=== PATIENT | male | born 1985 | race Caucasian/White ===

== ENCOUNTER 2016-10-18 14:21 | Emergency (ER) | payer MEDICAID, OTHER ==
[~2016-10-18] VITALS: Ht 182.9 cm; Wt 75.0 kg
[2016-10-18] MEDS ORDERED: methylPREDNISolone INJ 125 MG/2 ML VIAL (J2930) IV ONE (16:00)
[2016-10-18] MEDS ORDERED: FAMOTIDINE IV BAG 20 MG in APPROPRIATE DILUENT 1 EA IV ONE (16:00)
[2016-10-18 16:41] VITALS: BP 124/77
[2016-10-18] MEDS ORDERED: PRED20TA PO (16:41)
[2016-10-18] MEDS ORDERED: PEPC1TAB4 PO (16:41)
== END 2016-10-18 16:57 | disposition home or self-care (01) ==
LOC: M ED 14:21
DX: L29.9 Pruritus, unspecified (principal); T78.40XA Allergy, unspecified, initial encounter; X58.XXXA Exposure to other specified factors, initial encounter; Y92.89 Other specified places as the place of occurrence of the external cause; Y93.89 Activity, other specified; Y99.8 Other external cause status; F17.200 Nicotine dependence, unspecified, uncomplicated
CPT/HCPCS: 96374; 96375; 99283; J2930

== ENCOUNTER → 2016-12-23 | Outpatient (CLI) | payer MEDICAID, SELFPAY ==
[~2016-12-23] MED LIST: PEPC1TAB4 PO; PRED20TA PO
== END ==
LOC: M OUTALCOH 08:59
PROVIDERS: ATTEND Psychiatry & Neurology Psychiatry
DX: Z13.9 Encounter for screening, unspecified (principal); F10.10 Alcohol abuse, uncomplicated

== ENCOUNTER 2017-01-08 13:00 | Outpatient (RCR) | payer MEDICAID, SELFPAY | END 2017-01-21 | LOC: M OUTALCOH 13:00 | PROVIDERS: ATTEND Psychiatry & Neurology Psychiatry | DX: F10.20 Alcohol dependence, uncomplicated (principal); F17.200 Nicotine dependence, unspecified, uncomplicated ==

== ENCOUNTER → 2017-05-28 | Outpatient (CLI) | payer OTHER ==
[2017-05-28 18:07] LABS: INR 0.94; PROTHROMBIN TIME 12.6 SECONDS (12.4-14.5)
[2017-05-28 18:12] LABS: BASO # 0.1 10^3/uL (0.0-0.2); BASO % 0.7 % (0.0-1.0); EOS # 0.3 10^3/uL (0.0-0.50); EOS % 3.3 % (0.0-3.0); HEMATOCRIT 45.7 % (42.0-52.0); HEMOGLOBIN 15.8 g/dl (14.0-18.0); IMMATURE GRANULOCYTE % 0.3 % (0-3.0); LYMPH # 2.5 10^3/uL (1.5-4.5); LYMPH % 25.5 % (24.0-44.0); MEAN CORPUSCULAR HEMOGLOBIN 31.3 pg (27.0-33.0); MEAN CORPUSCULAR HGB CONC 34.6 g/dl (32.0-36.5); MEAN CORPUSCULAR VOLUME 90.5 fl (80.0-96.0); MONO # 0.7 10^3/uL (0.0-0.8); MONO % 7.5 % (0.0-5.0); NEUTROPHILS # 6.2 10^3/uL (1.8-7.7); NEUTROPHILS % 62.7 % (36.0-66.0); PLATELET COUNT, AUTOMATED 268 10^3/uL (150-450); RED BLOOD COUNT 5.05 10^6/uL (4.30-6.10); RED CELL DISTRIBUTION WIDTH 12.9 % (11.5-14.5); WHITE BLOOD COUNT 9.8 10^3/uL (4.0-10.0)
[2017-05-28 19:00] LABS: ERYTHROCYTE SEDIMENTATION RATE 5 mm/hr (0-15)
[2017-05-28 19:24] LABS: ALBUMIN 4.1 GM/DL (3.2-5.2); ALBUMIN/GLOBULIN RATIO 1.37 (1.00-1.93); ALKALINE PHOSPHATASE 48 U/L (45-117); ALT/SGPT 32 U/L (12-78); ANION GAP 7 MEQ/L (8-16); AST/SGOT 20 U/L (7-37); BILIRUBIN,TOTAL 0.3 MG/DL (0.2-1.0); BLOOD UREA NITROGEN 20 MG/DL (7-18); CALCIUM LEVEL 9.2 MG/DL (8.5-10.1); CARBON DIOXIDE LEVEL 27 MEQ/L (21-32); CHLORIDE LEVEL 106 MEQ/L (98-107); CREATININE FOR GFR 1.05 MG/DL (0.70-1.30); FERRITIN 115 NG/ML (26-388); GLOMERULAR FILTRATION RATE > 60.0 (>60); GLUCOSE, FASTING 96 MG/DL (70-100); IRON (FE) 103 UG/DL (65-175); POTASSIUM SERUM 4.4 MEQ/L (3.5-5.1); SODIUM LEVEL 140 MEQ/L (136-145); TOTAL PROTEIN 7.1 GM/DL (6.4-8.2)
== END ==
LOC: M LAB 17:04
DX: K92.1 Melena (principal)
CPT/HCPCS: 83540

== ENCOUNTER → 2017-06-05 | Outpatient (CLI) | payer MEDICAID | LOC: M OUTALCOH 08:44 | DX: F10.20 Alcohol dependence, uncomplicated (principal); F12.20 Cannabis dependence, uncomplicated ==

== ENCOUNTER 2017-06-20 15:11 | Outpatient (RCR) | payer MEDICAID | END 2017-06-21 | LOC: M OUTALCOH 15:11 | DX: F10.20 Alcohol dependence, uncomplicated (principal); F12.20 Cannabis dependence, uncomplicated; F17.200 Nicotine dependence, unspecified, uncomplicated ==

== ENCOUNTER 2017-07-03 15:16 | Outpatient (RCR) | payer MEDICAID | END 2017-07-21 | LOC: M OUTALCOH 07-08 16:00 | DX: F10.20 Alcohol dependence, uncomplicated (principal); F17.200 Nicotine dependence, unspecified, uncomplicated; F12.20 Cannabis dependence, uncomplicated ==

== ENCOUNTER 2017-07-22 16:13 | Outpatient (RCR) | payer MEDICAID | END 2017-08-21 | LOC: M OUTALCOH 16:13 | DX: F10.20 Alcohol dependence, uncomplicated (principal); F17.200 Nicotine dependence, unspecified, uncomplicated; F12.20 Cannabis dependence, uncomplicated ==

== ENCOUNTER 2017-09-02 16:00 | Outpatient (RCR) | payer MEDICAID | END 2017-09-20 | LOC: M OUTALCOH 09-05 16:00 | DX: F10.20 Alcohol dependence, uncomplicated (principal); F17.200 Nicotine dependence, unspecified, uncomplicated; F12.20 Cannabis dependence, uncomplicated ==

== ENCOUNTER 2017-11-26 10:17 | Outpatient (RCR) | payer MEDICAID | END 2017-12-21 | LOC: M OUTALCOH 12-04 14:00 | DX: F10.20 Alcohol dependence, uncomplicated (principal); F17.200 Nicotine dependence, unspecified, uncomplicated; F12.20 Cannabis dependence, uncomplicated ==

== ENCOUNTER 2017-12-22 14:17 | Outpatient (RCR) | payer MEDICAID | END 2018-01-21 | LOC: M OUTALCOH 12-24 08:45 | DX: F10.20 Alcohol dependence, uncomplicated (principal); F17.200 Nicotine dependence, unspecified, uncomplicated; F12.20 Cannabis dependence, uncomplicated ==

== ENCOUNTER 2018-01-23 11:07 | Outpatient (RCR) | payer MEDICAID | END 2018-02-20 | LOC: M OUTALCOH 11:07 | DX: F10.20 Alcohol dependence, uncomplicated (principal); F17.200 Nicotine dependence, unspecified, uncomplicated; F12.20 Cannabis dependence, uncomplicated ==

== ENCOUNTER 2018-02-23 08:16 | Outpatient (RCR) | payer MEDICAID ==
[~2018-02-23 08:16] MED LIST changes: -PEPC1TAB4 PO; +PEPC1TAB5 PO
== END 2018-03-23 ==
LOC: M OUTALCOH 08:16
PROVIDERS: ATTEND Psychiatry & Neurology Psychiatry
DX: F10.20 Alcohol dependence, uncomplicated (principal); F12.20 Cannabis dependence, uncomplicated; F17.200 Nicotine dependence, unspecified, uncomplicated

== ENCOUNTER 2018-04-22 15:00 | Outpatient (RCR) | payer MEDICAID | END 2018-04-23 | LOC: M OUTALCOH 15:00 | PROVIDERS: ATTEND Psychiatry & Neurology Psychiatry | DX: F10.20 Alcohol dependence, uncomplicated (principal); F17.200 Nicotine dependence, unspecified, uncomplicated ==

== ENCOUNTER 2018-05-14 14:49 | Outpatient (RCR) | payer MEDICAID | END 2018-05-21 | LOC: M OUTALCOH 14:49 | PROVIDERS: ATTEND Psychiatry & Neurology Psychiatry | DX: F10.20 Alcohol dependence, uncomplicated (principal); F12.20 Cannabis dependence, uncomplicated; F17.200 Nicotine dependence, unspecified, uncomplicated ==

== ENCOUNTER 2018-09-15 18:30 | Emergency (ER) | payer MEDICAID, OTHER ==
[~2018-09-15] VITALS: Ht 167.6 cm; Wt 75.0 kg
[2018-09-15 19:10] LABS: BASO # 0.1 10^3/uL (0.0-0.2); BASO % 0.6 % (0.0-1.0); EOS # 0.4 10^3/uL (0.0-0.50); EOS % 3.2 % (0.0-3.0); HEMATOCRIT 46.2 % (42.0-52.0); HEMOGLOBIN 16.9 g/dl (13.5-17.5); LYMPH # 3.4 10^3/uL (1.5-4.5); LYMPH % 29.2 % (24.0-44.0); MEAN CORPUSCULAR HEMOGLOBIN 32.1 pg (27.0-33.0); MEAN CORPUSCULAR HGB CONC 36.6 g/dl (32.0-36.5); MEAN CORPUSCULAR VOLUME 87.8 fl (80.0-96.0); MONO # 0.9 10^3/uL (0.0-0.8); MONO % 8.1 % (0.0-5.0); NEUTROPHILS # 6.7 10^3/uL (1.8-7.7); NEUTROPHILS % 58.3 % (36.0-66.0); PLATELET COUNT, AUTOMATED 293 10^3/uL (150-450); RED BLOOD COUNT 5.26 10^6/uL (4.30-6.10); WHITE BLOOD COUNT 11.5 10^3/uL (4.0-10.0)
[2018-09-15 19:12] LABS: INR 0.94; PROTHROMBIN TIME 12.3 SECONDS (11.8-14.0)
[2018-09-15 19:23] LABS: D-DIMER QUANT < 270 ng/ml (<500)
[2018-09-15] MEDS ORDERED: LORazepam 1 MG TAB PO ONE (19:30)
[2018-09-15] MEDS ORDERED: GI COCKTAIL 50ML BTL(HYOSCYAMINE/MAALOX/LIDOCAINE VISCOUS)(1:3:1) PO ONE (19:30)
--- NOTE | 2018-09-15 19:31 | REP ---
Clinical: Acute chest pain . Comparison: 08/03/2011 . Findings: The mediastinum and cardiac silhouette are stable and within normal limits for portable technique. The lung royal are clear without acute consolidation, effusion, or pneumothorax. Skeletal structures are intact. Impression: No acute cardiopulmonary process appreciated. Electronically Signed by Jose Agrawal MD 09/15/2018 07:22 P
[2018-09-15 19:34] LABS: ALT/SGPT 22 U/L (12-78); BILIRUBIN,DIRECT 0.3 MG/DL (0.0-0.2); BLOOD UREA NITROGEN 17 MG/DL (7-18); CALCIUM LEVEL 9.7 MG/DL (8.5-10.1); CARBON DIOXIDE LEVEL 25 MEQ/L (21-32); CHLORIDE LEVEL 104 MEQ/L (98-107); CK-MB VALUE MASS 2.6 NG/ML (<3.6); CPK CREATINE PHOSPHOKINASE 168 U/L (39-308); CREATININE FOR GFR 1.32 MG/DL (0.70-1.30); GLOMERULAR FILTRATION RATE > 60.0 (>60); GLUCOSE, FASTING 91 MG/DL (70-100); LIPASE 80 U/L (73-393); MB/CK RELATIVE INDEX 1.55 (< OR =4); NT-PRO BNP 16 PG/ML (<125); POTASSIUM SERUM 3.5 MEQ/L (3.5-5.1); SODIUM LEVEL 137 MEQ/L (136-145); TOTAL PROTEIN 7.2 GM/DL (6.4-8.2); TROPONIN I < 0.02 NG/ML (< 0.10)
[2018-09-15 19:38] LABS: AMPHETAMINES LEVEL URINE POSITIVE (NEGATIVE); BARBITURATES URINE NEGATIVE (NEGATIVE); BENZODIAZEPINES URINE NEGATIVE (NEGATIVE); CANNABINOIDS URINE POSITIVE (NEGATIVE); COCAINE METABOLITE URINE NEGATIVE (NEGATIVE); METHADONE URINE NEGATIVE (NEGATIVE); OPIATES URINE NEGATIVE (NEGATIVE); PHENCYCLIDINE URINE NEGATIVE (NEGATIVE)
[2018-09-15 22:11] LABS: CK-MB VALUE MASS 2.1 NG/ML (<3.6); CPK CREATINE PHOSPHOKINASE 148 U/L (39-308); MB/CK RELATIVE INDEX 1.42 (< OR =4); TROPONIN I < 0.02 NG/ML (< 0.10)
[2018-09-15] MEDS ORDERED: HYDR-3363 PO (23:06)
[2018-09-15] MEDS ORDERED: SUCR1TA PO (23:06)
[2018-09-15] MEDS ORDERED: PRIL20TA2 PO (23:06)
[2018-09-15 23:12] VITALS: BP 143/76
--- NOTE | 2018-09-16 21:28 | ECGEPIP ---
[facility] - ED Test Date: 2018-09-15 Pat Name: RAMSES MIJARES Department: Room: - Gender: Male [employer]: ct : 1985 Requested By: KATHLEEN Esqueda Order Number: [id number] Reading MD: Almaz Dumont Measurements Intervals [place] Rate: 106 P: 75 GA: 138 QRS: 68 QRSD: 89 T: 71 QT: 342 QTc: 455 Interpretive Statements SINUS TACHYCARDIA ABNORMAL RHYTHM ECG NSTTW abnormalities NO PRIOR Electronically Signed on 09-16-2018 21:28:50 EDT by Almaz Dumont
--- NOTE | 2018-09-16 21:34 | ECGEPIP ---
[facility] - ED Test Date: 2018-09-15 Pat Name: RAMSES MIJARES Department: Room: - Gender: Male [employer] Sorter: MICHAEL : 1985 Requested By: KATHLEEN Esqueda Order Number: [id number] Reading MD: Almaz Dumont Measurements Intervals [place] Rate: 54 P: 43 NM: 141 QRS: 53 QRSD: 90 T: 68 QT: 393 QTc: 376 Interpretive Statements SINUS BRADYCARDIA NSTTW abnormalities DECREASED RATE 09/15/18 Electronically Signed on 09-16-2018 21:33:51 EDT by Almaz Dumont
== END 2018-09-15 23:17 | disposition home or self-care (01) ==
LOC: M ED 18:30 → EDBD 18:30 → M ED 23:17
DX: K21.0 Gastro-esophageal reflux disease with esophagitis (principal); F41.9 Anxiety disorder, unspecified; F90.9 Attention-deficit hyperactivity disorder, unspecified type; Z79.899 Other long term (current) drug therapy; F17.210 Nicotine dependence, cigarettes, uncomplicated

== ENCOUNTER 2018-11-20 10:06 | Emergency (ER) | payer OTHER ==
[~2018-11-20] VITALS: Ht 182.9 cm; Wt 77.3 kg
[~2018-11-20 10:06] MED LIST changes: +HYDR-3363 PO; +PRIL20TA2 PO; +SUCR1TA PO
[2018-11-20] MEDS ORDERED: LORazepam 2 MG TAB PO STA (10:20)
[2018-11-20 13:00] VITALS: BP 129/73
== END 2018-11-20 13:05 | disposition home or self-care (01) ==
LOC: M ED 10:06
DX: F41.9 Anxiety disorder, unspecified (principal); F41.0 Panic disorder [episodic paroxysmal anxiety]; Z72.0 Tobacco use

== ENCOUNTER → 2018-11-25 | Outpatient (CLI) | payer MEDICAID | LOC: M OUTALCOH 07:39 | PROVIDERS: ATTEND Psychiatry & Neurology Psychiatry | DX: F10.20 Alcohol dependence, uncomplicated (principal); F12.20 Cannabis dependence, uncomplicated; F14.20 Cocaine dependence, uncomplicated ==

== ENCOUNTER → 2018-12-21 | Outpatient (RCR) | payer MEDICAID | LOC: M OUTALCOH 12-02 11:00 | PROVIDERS: ATTEND Psychiatry & Neurology Psychiatry | DX: F10.20 Alcohol dependence, uncomplicated (principal); F12.20 Cannabis dependence, uncomplicated; F14.20 Cocaine dependence, uncomplicated; F17.200 Nicotine dependence, unspecified, uncomplicated ==

== ENCOUNTER 2018-12-24 15:30 | Outpatient (RCR) | payer MEDICAID, SELFPAY | END 2019-01-21 | LOC: M OUTALCOH 15:30 | PROVIDERS: ATTEND Psychiatry & Neurology Psychiatry | DX: F10.20 Alcohol dependence, uncomplicated (principal); F17.200 Nicotine dependence, unspecified, uncomplicated; F14.20 Cocaine dependence, uncomplicated; F12.20 Cannabis dependence, uncomplicated ==

== ENCOUNTER 2019-06-04 23:56 | Emergency (ER) | payer OTHER, SELFPAY ==
[~2019-06-04] VITALS: Ht 182.9 cm; Wt 76.4 kg
[2019-06-05] MEDS ORDERED: hydrOXYzine 50 MG TAB PO STA (01:51)
[2019-06-05] MEDS ORDERED: VIST50CA PO (01:52)
[2019-06-05 02:17] VITALS: BP 159/74
== END 2019-06-05 02:19 | disposition home or self-care (01) ==
LOC: M ED 23:56
DX: F41.0 Panic disorder [episodic paroxysmal anxiety] (principal); F17.210 Nicotine dependence, cigarettes, uncomplicated; F10.10 Alcohol abuse, uncomplicated

== ENCOUNTER 2020-01-07 07:38 | Emergency (ER) | payer OTHER ==
[~2020-01-07] VITALS: Ht 180.3 cm; Wt 79.3 kg
[~2020-01-07 07:38] MED LIST changes: +VIST50CA PO
--- NOTE | 2020-01-07 09:11 | REPVR ---
PROCEDURE INFORMATION: Exam: US Duplex Right Lower Extremity Veins, Limited Exam date and time: 01/07/2020 8:42 AM Age: 34 years old Clinical indication: Pain; Leg, lower; Right; Additional info: R/O dvt, pain and redness and medial right calf TECHNIQUE: Imaging protocol: Real-time Duplex ultrasound of the Right Lower Extremity with 2-D church scale, color Doppler flow and spectral waveform analysis with image documentation. Limited exam was focused on the right lower extremity veins. COMPARISON: No relevant prior studies available. FINDINGS: Right deep veins: No deep venous thrombosis in the visualized right common femoral, profunda femoris, superficial femoral, or popliteal veins. Right superficial veins: Superficial thrombus in the region of the right calf. Soft tissues: Unremarkable. IMPRESSION: 1. No deep venous thrombosis in the visualized right lower extremity. 2. Superficial thrombus in the region of the right calf. Electronically signed by: Soto Valdez On 01/07/2020 09:11:15 AM
[2020-01-07] MEDS ORDERED: IBUP80TA PO (09:44)
[2020-01-07 09:57] VITALS: BP 160/92
== END 2020-01-07 09:59 | disposition home or self-care (01) ==
LOC: M ED 07:38
DX: I82.811 Embolism and thrombosis of superficial veins of right lower extremity (principal); F17.210 Nicotine dependence, cigarettes, uncomplicated; Z83.2 Family history of diseases of the blood and blood-forming organs and certain disorders involving the immune mechanism

== ENCOUNTER 2020-01-19 23:16 | Emergency (ER) | payer OTHER ==
[~2020-01-19] VITALS: Ht 180.3 cm; Wt 77.7 kg
[~2020-01-19 23:16] MED LIST changes: +IBUP80TA PO
[2020-01-19] MEDS ORDERED: NAPR-885 (23:22)
[2020-01-20] MEDS ORDERED: MAGIC MOUTHWASH SUSPENSION BTL SS STA (00:20)
[2020-01-20] MEDS ORDERED: HYDR-3713 PO (00:22)
[2020-01-20] MEDS ORDERED: AUGM875T28 PO (00:22)
[2020-01-20] MEDS ORDERED: IBUP80TA PO (00:22)
[2020-01-20] MEDS ORDERED: MAGICMW SSP (00:22)
[2020-01-20] MEDS ORDERED: NORCO 5/325MG TABLET (BULK FOR ED) PO ONE (00:30)
[2020-01-20] MEDS ORDERED: IBUPROFEN 600MG TAB PO ONE (00:30)
[2020-01-20] MEDS ORDERED: AUGMENTIN 875 MG TAB PO ONE (00:30)
[2020-01-20 00:33] VITALS: BP 139/97
== END 2020-01-20 00:42 | disposition home or self-care (01) ==
LOC: M ED 23:16
DX: S02.5XXA Fracture of tooth (traumatic), initial encounter for closed fracture (principal); K02.9 Dental caries, unspecified; X58.XXXA Exposure to other specified factors, initial encounter; Y92.89 Other specified places as the place of occurrence of the external cause; Y93.89 Activity, other specified; Y99.8 Other external cause status; K04.7 Periapical abscess without sinus; F17.200 Nicotine dependence, unspecified, uncomplicated

== ENCOUNTER → 2020-03-20 | Outpatient (REF) | payer OTHER ==
[~2020-03-20] MED LIST changes: +AUGM875T28 PO; +HYDR-3713 PO; +MAGICMW SSP; +NAPR-885
[2020-03-20 12:21] LABS: ALT/SGPT 54 U/L (12-78); BILIRUBIN,TOTAL 0.6 MG/DL (0.2-1.0); BLOOD UREA NITROGEN 7 MG/DL (7-18); CALCIUM LEVEL 9.1 MG/DL (8.5-10.1); CARBON DIOXIDE LEVEL 29 MEQ/L (21-32); CHLORIDE LEVEL 106 MEQ/L (98-107); CHOLESTEROL LEVEL 288 MG/DL (<200); CHOLESTEROL RISK RATIO 5.433 (<5); CREATININE FOR GFR 1.07 MG/DL (0.70-1.30); GLOMERULAR FILTRATION RATE > 60.0 (>60); GLUCOSE, FASTING 98 MG/DL (70-100); HDL CHOLESTEROL 53 MG/DL (>40); LDL CHOLESTEROL 171 MG/DL (<100); NON-HDL-C 235 MG/DL; POTASSIUM SERUM 3.8 MEQ/L (3.5-5.1); SODIUM LEVEL 139 MEQ/L (136-145); TOTAL PROTEIN 7.1 GM/DL (6.4-8.2); TRIGLYCERIDES LEVEL 321 MG/DL (<150)
== END ==
LOC: M LAB REF 11:19
PROVIDERS: ATTEND Family Medicine Addiction Medicine
DX: Z00.00 Encounter for general adult medical examination without abnormal findings (principal)

== ENCOUNTER → 2020-03-25 | Outpatient (CLI) | payer SELFPAY | LOC: M LABSMTC 10:57 | PROVIDERS: ATTEND Pediatrics | DX: Z20.828 Contact with and (suspected) exposure to other viral communicable diseases (principal) ==

== ENCOUNTER 2020-05-08 13:43 | Emergency (ER) | payer OTHER ==
[~2020-05-08] VITALS: Ht 182.9 cm; Wt 85.6 kg
[2020-05-08 13:44] VITALS: BP 160/108
--- OUTSIDE RECORDS SUMMARY | 2020-05-08 13:49 | CCD ---
Author Author [facility] Organization [facility] Address Unknown Phone Unavailable Care Team Providers Care Television Producer Name Role Phone Lily Patterson MD Unavailable Unavailable Lily Patterosn MD Unavailable Unavailable Lily Patterson MD Unavailable Unavailable Lily Patterson MD Unavailable Unavailable Lily Patterson MD Unavailable Unavailable Lily Patterson MD Unavailable Unavailable Lily Patterson MD Unavailable Unavailable Lily Patterson MD Unavailable Unavailable Lily Patterson MD Unavailable Unavailable Lily Patterson MD Unavailable Unavailable Lily Patterson MD Unavailable Unavailable Lily Patterson MD Unavailable Unavailable Lily Patterson MD Unavailable Unavailable Lily Patterson MD Unavailable Unavailable Lily Patterson MD Unavailable Unavailable Lily Patterson MD Unavailable Unavailable Lily Patterson MD Unavailable Unavailable Lily Patterson MD Unavailable Unavailable Lily Patterson MD Unavailable Unavailable Lily Patterson MD Unavailable Unavailable Lily Patterson MD Unavailable Unavailable Lily Patterson MD Unavailable Unavailable Lily Patterson MD Unavailable Unavailable Lily Patterson MD Unavailable Unavailable Lily Patterson MD Unavailable Unavailable Lily Patterson MD Unavailable Unavailable Lily Patterson MD Unavailable Unavailable Lily Patterson MD Unavailable Unavailable Lily Patterson MD Unavailable Unavailable Lily Patterson MD Unavailable Unavailable Lily Patterson MD Unavailable Unavailable Lily Patterson MD Unavailable Unavailable Lily Patterson MD Unavailable Unavailable Lily Patterson MD Unavailable Unavailable Lily Patterson MD Unavailable Unavailable Lily Patterson MD Unavailable Unavailable Lily Patterson MD Unavailable Unavailable Lily Patterson MD Unavailable Unavailable Lily Patterson MD Unavailable Unavailable Lily Patterson MD Unavailable Unavailable Lily Patterson MD Unavailable Unavailable Lily Patterson MD Unavailable Unavailable Lily Patterson MD Unavailable Unavailable Lily Patterson MD Unavailable Unavailable Lily Patterson MD Unavailable Unavailable Lily Patterson MD Unavailable Unavailable Lily Patterson MD Unavailable Unavailable Lily Patterson MD Unavailable Unavailable Lily Patterson MD Unavailable Unavailable Lily Patterson MD Unavailable Unavailable Lily Patterson MD Unavailable Unavailable Lily Patterson MD Unavailable Unavailable Lily Patterson MD Unavailable Unavailable Lily Patterson MD Unavailable Unavailable Lily Patterson MD Unavailable Unavailable Lily Patterson MD Unavailable Unavailable Lily Patterson MD Unavailable Unavailable Lily Patterson MD Unavailable Unavailable Lily Patterson MD Unavailable Unavailable Lily Patterson MD Unavailable Unavailable Lily Patterson MD Unavailable Unavailable Lily Patterson MD Unavailable Unavailable Lily Patterson MD Unavailable Unavailable Lily Patterson MD Unavailable Unavailable Lily Patterson MD Unavailable Unavailable Lily Patterson MD Unavailable Unavailable Lily Patterson MD Unavailable Unavailable Lily Patterson MD Unavailable Unavailable Lily Patterson MD Unavailable Unavailable Lily Patterson MD Unavailable Unavailable Lily Patterson MD Unavailable Unavailable Lily Patterson MD Unavailable Unavailable Lily Patterson MD Unavailable Unavailable Lily Patterson MD Unavailable Unavailable Lily Patterson MD Unavailable Unavailable Lily Patterson MD Unavailable Unavailable Lily Patterson MD Unavailable Unavailable Lily Patterson MD Unavailable Unavailable Lily Patterson MD Unavailable Unavailable Lily Patterson MD Unavailable Unavailable Lily Patterson MD Unavailable Unavailable Lily Patterson MD Unavailable Unavailable Lily Patterson MD Unavailable Unavailable Lily Patterson MD Unavailable Unavailable Lily Patterson MD Unavailable Unavailable Lily Patterson MD Unavailable Unavailable Lily Patterson MD Unavailable Unavailable Lily Patterson MD Unavailable Unavailable Lily Patterson MD Unavailable Unavailable Armas, Mohit ELECTRONIC ASSEMBLY ELECTRONIC ASSEMBLY Unavailable Unavailable Armas, F Mohit ELECTRONIC ASSEMBLY-BC Unavailable Unavailable Armas, F Mohit ELECTRONIC ASSEMBLY-BC Unavailable Unavailable Armas, F Mohit ELECTRONIC ASSEMBLY-BC Unavailable Unavailable Armas, F Mohit ELECTRONIC ASSEMBLY-BC Unavailable Unavailable Armas, F Mohit ELECTRONIC ASSEMBLY-BC Unavailable Unavailable Armas, F Mohit ELECTRONIC ASSEMBLY-BC Unavailable Unavailable Armas, F Mohit ELECTRONIC ASSEMBLY-BC Unavailable Unavailable Armas, F Mohit ELECTRONIC ASSEMBLY-BC Unavailable Unavailable Armas, F Mohit ELECTRONIC ASSEMBLY-BC Unavailable Unavailable Armas, F Mohit ELECTRONIC ASSEMBLY-BC Unavailable Unavailable Armas, F Mohit ELECTRONIC ASSEMBLY-BC Unavailable Unavailable Armas, F Mohit ELECTRONIC ASSEMBLY-BC Unavailable Unavailable Armas, F Mohit ELECTRONIC ASSEMBLY-BC Unavailable Unavailable Armas, F Mohit ELECTRONIC ASSEMBLY-BC Unavailable Unavailable Armas, F Mohit ELECTRONIC ASSEMBLY-BC Unavailable Unavailable Armas, F Mohit ELECTRONIC ASSEMBLY-BC Unavailable Unavailable Armas, F Mohit ELECTRONIC ASSEMBLY-BC Unavailable Unavailable Armas, F Mohit ELECTRONIC ASSEMBLY-BC Unavailable Unavailable Armas, F Mohit ELECTRONIC ASSEMBLY-BC Unavailable Unavailable Armas, F Mohit ELECTRONIC ASSEMBLY-BC Unavailable Unavailable Armas, F Mohit ELECTRONIC ASSEMBLY-BC Unavailable Unavailable Armas, F Mohit ELECTRONIC ASSEMBLY-BC Unavailable Unavailable Re-disclosure Warning The records that you are about to access may contain information from federally-assisted alcohol or drug abuse programs. If such information is present, then the following federally mandated warning applies: This information has been disclosed to you from records protected by federal confidentiality rules (42 CFR part 2). The federal rules prohibit you from making any further disclosure of this information unless further disclosure is expressly permitted by the written consent of the person to whom it pertains or as otherwise permitted by 42 CFR part 2. A general authorization for the release of medical or other information is NOT sufficient for this purpose. The Federal rules restrict any use of the information to criminally investigate or prosecute any alcohol or drug abuse patient.The records that you are about to access may contain highly sensitive health information, the redisclosure of which is protected by Article 27-F of the [facility] Public Health law. If you continue you may have access to information: Regarding HIV / AIDS; Provided by facilities licensed or operated by the [facility] Office of Mental Health; or Provided by the [facility] Office for People With Developmental Disabilities. If such information is present, then the following [facility] mandated warning applies: This information has been disclosed to you from confidential records which are protected by state law. State law prohibits you from making any further disclosure of this information without the specific written consent of the person to whom it pertains, or as otherwise permitted by law. Any unauthorized further disclosure in violation of state law may result in a fine or group home sentence or both. A general authorization for the release of medical or other information is NOT sufficient authorization for further disc losure. Family History Family Member Name Family Member Gender Family Member Status Date o f Status Description Data Source(s) Unknown Unknown Problem MEDENT ([facility] Justin Koo MD ) Encounters Encounter Providers Location Date Indications Data Source(s ) Patrick Patterson MD: [address] [place] [address] 504, Ph. Attender: Patrick Patterson MD [facility] Medical 03/20/2020 12:00:00 AM EST EDY ([facility]) Patrick Patterson MD: [address] [place], [place] [id number] 504, Ph. Attender: Patrick Patterson MD [facility] Medical 02/16/2020 12:00:00 AM EST EDY ([facility]) Patrick Patterson MD: [address] [place] [id number], Ph. Attender: Patrick Patterson MD [facility] Medical 02/16/2020 12:00:00 AM EST EDY ([facility]) Outpatient Attender: LUZMARIA DUTTA FP 02/02/2020 12:12:00 PM [facility] Outpatient Attender: Mohit SANZ FP 01/26/2020 01: 20:00 PM [facility] Outpatient Attender: LUZMARIA DUTTA FP 01/26/2020 12:19:00 PM [facility] Outpatient Attender: Mohit SANZ FP 01/25/2020 11: 55:01 AM [facility] Outpatient Attender: Mohit SANZ FP 01/24/2020 12: 16:02 PM [facility] Outpatient Attender: LUZMARIA DUTTA FP 01/24/2020 10:45:02 AM EST [facility] Outpatient Attender: LUZMARIA DUTTA FP 01/21/2020 12:34:01 PM EDT [facility] Outpatient Attender: Mohit SANZ FP 01/21/2020 12: 34:01 PM EDT [facility] Outpatient Attender: LUZMARIA DUTTA FP 01/21/2020 11:53:00 AM EDT [facility] Outpatient Attender: LUZMARIA DUTTA FP 01/21/2020 11:38:00 AM EDT [facility] Outpatient Attender: LUZMARIA DUTTA FP 01/21/2020 11:34:00 AM EDT [facility] Outpatient Attender: LUZMARIA DUTTA FP 01/21/2020 11:33:00 AM EDT [facility] Outpatient Attender: LUZMARIA DUTTA FP 01/21/2020 11:30:00 AM EDT [facility] Outpatient Attender: LUZMARIA DUTTA FP 01/21/2020 11:29:00 AM EDT [facility] Outpatient Attender: LUZMARIA DUTTA FP 01/17/2020 01:25:00 PM EDT [facility] Outpatient Attender: Mohit SANZ FP 06/07/2019 09: 27:00 AM EDT [facility] Medications Medication Brand Name Start Date Product Form Dose Route Admi nistrative Instructions Pharmacy Instructions Status Indications Reaction Description Data Source(s) Ondansetron 8 MG Disintegrating Oral Tab let ondansetron 8 mg disintegrating tablet ondansetron 8 mg disintegrating tablet completed ondansetron 8 MG Disintegrating Oral Tablet EDY ([facility]) Amoxicillin 875 MG / Clavulanate 125 MG Oral Tablet amoxicillin 875 mg-potassium clavulanate 125 mg tablet amoxicillin 875 mg-potassium clavulanate 125 mg tablet completed amoxicillin 875 MG / clavulanate 125 MG Oral Tablet EDY ([facility]) Amoxicillin 875 MG / Clavulanate 125 MG Oral Tablet amoxicillin 875 mg-potassium clavulanate 125 mg tablet amoxicillin 875 mg-potassium clavulanate 125 mg tablet completed amoxicillin 875 MG / clavulanate 125 MG Oral Tablet EDY ([facility]) Acetaminophen 325 MG / Hydrocodone Juanjo trate 5 MG Oral Tablet hydrocodone 5 mg- acetaminophen 325 mg tablet hydrocodone 5 mg-acetaminophen 325 mg tablet completed acetaminophen 325 MG / hydrocodone bitartrate 5 MG Oral Tablet EDY ([facility]) Ibuprofen 800 MG Oral Tablet ibuprofen 800 mg tablet ibuprofen 8 00 mg tablet completed ibuprofen 800 MG Oral Tablet EDY ([facility]) Ibuprofen 800 MG Oral Tablet ibuprofen 800 mg tablet ibuprofen 8 00 mg tablet completed ibuprofen 800 MG Oral Tablet EDY ([facility]) Naproxen 500 MG Oral Tablet naproxen 500 mg tablet naproxen 500 mg ta blet completed naproxen 500 MG Oral Tablet EDY ([facility]) Naproxen 500 MG Oral Tablet naproxen 500 mg tablet naproxen 500 mg ta blet completed naproxen 500 MG Oral Tablet EDY ([facility]) Acetaminophen 325 MG / Hydrocodone Juanjo trate 5 MG Oral Tablet hydrocodone 5 mg- acetaminophen 325 mg tablet hydrocodone 5 mg-acetaminophen 325 mg tablet completed acetaminophen 325 MG / hydrocodone bitartrate 5 MG Oral Tablet EDY ([facility]) Ondansetron 8 MG Disintegrating Oral Tab let ondansetron 8 mg disintegrating tablet ondansetron 8 mg disintegrating tablet completed ondansetron 8 MG Disintegrating Oral Tablet ALBION ([facility]) Insurance Providers Payer name Policy type / Coverage type Policy ID Covered constitution party ID Covered constitution party's relationship to singer Policy Singer Plan Information [facility] COMMUNITY PLAN MCDO [id number] SP [id number] SELF PAY ONLY [id number] SP [id number] Managed Care - [facility] P [id number] S [id number] Medicaid S [id number] S [id number] D Managed Care [facility] O [id number] S [id number] D Managed Care [facility] O [id number] S [id number] [facility] [id number] SP [id number] Medicaid S [id number] S [id number] Managed Care - [facility] P [id number] S [id number] Medicaid O [id number] S [id number] MEDICAID [id number] SP [id number] SELF PAY ONLY [id number] SP [id number] Self Pay P [id number] S [id number] MEDICAID -PHYSICIAN [id number] 1 [id number] MEDICAID - O/P EMERGENCY ROOM [id number] Medicaid Dental P [id number] S [id number] [facility] [id number] SP [id number] [facility] ENID [id number] SP [id number] JOHN [id number] SP [id number] [facility] ENID [id number] SP [id number] [place] Care Commercial Self United[employer] Care Hmo Commercial Self [facility] COMMUNITY PLAN MCDO [id number] SP [id number] SELF PAY UNAVAILABLE SP UNAVAILA BLE Problems, Conditions, and Diagnoses Code Display Name Description Problem Type Effective Dates Data Source(s) 521.03 DENTAL CARIES EXTENDING INTO PULP DENTAL CARIES EXTEND ING INTO PULP 01/21/2020 12:33:40 PM EDT [facility] Results ID Date Data Source [id number] 03/25/2020 12:00:00 AM EST [facility] Name Value Range Interpretation Code Description Data Ivania rce(s) Supporting Document(s) SARS-CoV-2 (COVID-19) RNA [Presence] in Respiratory specimen by KEI with probe detection [facility] This lab was ordered by [facility] and reported by [employer] ID Date Data Source [id number] 01/26/2020 12:22:55 PM EST [facility] Current Problems: DENTAL CARIES EXTENDIN G INTO PULP (ICD-521.03) (ICD10- K02.63)upper respiratory infection (ICD-465.9) (WHF83-L24.9)Diarrhea, unspecified (ICD-787.91) (KPQ97-F24.7)Anxiety disorder, unspecified (ICD10- F41.9)Atypical chest pain (ICD-786.59) (GLD53-K14.89)Nicotine dependence, other tobacco product, uncomplicated (JYJ09-M68.290)Hematochezia (ICD-578.1) (ICD10- K92.1)Encounter for general adult medical examination with abnormal findings (ICD-V70.0) (QYP78-C57.01)Current Medications: MUCINEX DM 30-600 MG ORAL TABLET EXTENDED RELEASE 12 HOUR (DEXTROMETHORPHAN-GUAIFENESIN) take one tablet twice daily for 4 days; Route: ORALCurrent Allergies: ADHESIVE TAPE (Critical) Dental Chart: Procedures:Type - CDT Code - Description B - (D0330) Panoramic film (Performed by Lisbet Katz DDS) B - (D7140) Extraction, erupted tooth or exposed root (elevation and/or forceps removal) on Tooth # 18 (Performed by Lisbet Katz DDS) B - (D7140) Extraction, erupted tooth or exposed root (elevation and/or forceps removal) on Tooth # 19 (Performed by Lisbet Katz DDS) Chart Notes:russell (Jan 26 2020 1:19PM): [facility] (-)per pt.BP:132/89.Temperature:taken in lobbyVerified tooth #18, 19 to be extracted with patient.OS consent obtainedTopical 20% Benzocaine, LL IANB 1 carp of Lidocaine 2% 1:100k with epi. 2 carp of 4% Septocaine/Articaine with 1:100k epi givenSimple extraction of #18, 19 with forcep and elevator. Hemostasis achieved using pressure. POI given. Pt dismissed in stable condition.Pt was cooperativeAdditional PPE were used due to COVID-19. This included a minimum of a N95, a surgical mask, a hair covering, a face shield, proctective eyewear, and a gown.Assisted by:MARTÍN elizabeth.placed referral to OS for extraction of #32Bacsik Lisbet MCDUFFIE by russell (01/26/2020 1:19 PM): Tooth Notes and Watches:- Tooth 18 Note: Referred to Sherie Croft DDS by kelly (01/21/2020 11:51 AM): - Tooth 19 Note: Referred to Sherie Croft DDS by kelly (01/21/2020 11:51 AM): Assessment & Plan Orders:Oral Surgery Referral [[id number]-[id number]] Name Value Range Interpretation Code Description Data Ivania rce(s) Supporting Document(s) ID Date Data Source [id number] 01/25/2020 11:00:24 AM [facility] Current Problems: DENTAL CARIES EXTENDIN G INTO PULP (ICD-521.03) (ICD10- K02.63)upper respiratory infection (ICD-465.9) (KOU63-L72.9)Diarrhea, unspecified (ICD-787.91) (JVG26-B44.7)Anxiety disorder, unspecified (ICD10- F41.9)Atypical chest pain (ICD-786.59) (OJD32-P53.89)Nicotine dependence, other tobacco product, uncomplicated (NSQ74-V71.290)Hematochezia (ICD-578.1) (ICD10- K92.1)Encounter for general adult medical examination with abnormal findings (ICD-V70.0) (PHB17-Y89.01)Current Medications: MUCINEX DM 30-600 MG ORAL TABLET EXTENDED RELEASE 12 HOUR (DEXTROMETHORPHAN-GUAIFENESIN) take one tablet twice daily for 4 days; Route: ORALCurrent Allergies: ADHESIVE TAPE (Critical) Dental Chart: Procedures:Type - CDT Code - Description B - (D2332) Resin, 3 surfaces, anterior on Tooth # 10 on Tooth Surface MLD (Performed by Iris Kelley DMD) B - (D2331) Resin, 2 surfaces, anterior on Tooth # 9 on Tooth Surface DL (Performed by Iris Kelley DMD) Chart Notes:jlam (Jan 25 2020 11:54AM): [facility] (-)per pt. Took temp@ [employer]. Additional PPE requirements due to COVID-19 in the dental setting, N95, surgical mask, hair covering, gown CC: none. Cetacaine spray used as topical. UA infiltration 1/2 carp Lidocaine HCL 2% with 1:100,000 epi. Operative: #9-DL, 10-MLD etch, FuturaBond, Light-cured, A-3 [place], light-cured. Excavated with High Speed, Slow Speed and Spoon. Occlusion checked and polished. No complications. POI given. Assisted by:SYL Pt was cooperative. NV: Extraction #18, 19Lam Iris HUFF by ras (01/25/2020 11:54 AM): Tooth Notes and Watches:- Tooth 18 Note: Referred to Sherie Croft DDS by kelly (01/21/2020 11:51 AM): - Tooth 19 Note: Referred to Sherie Croft DDS by kelly (01/21/2020 11:51 AM): Assessment & Plan Medications:MUCINEX DM 30-600 MG ORAL TABLET EXTENDED RELEASE 12 HOURAllergies:ADHESIVE TAPE (Critical) Name Value Range Interpretation Code Description Data Ivania rce(s) Supporting Document(s) ID Date Data Source [id number] 01/24/2020 08:56:40 AM [facility] Vital SignsBlood Pressure: 140/85 Patient History Medical History:AnxietyDepressionADHDClot in right leg - patient seen in ER in nov 2019Family History:Hyperthyroidism (Mother)Social/Personal History: Smoking Status: current every day smokerCurrent Problems: DENTAL CARIES EXTENDING INTO PULP (ICD-521.03) (GOY15-Y90.63)upper respiratory infection (ICD-465.9) (ICD10- J06.9)Diarrhea, unspecified (ICD-787.91) (YIL47-E47.7)Anxiety disorder, unspecified (KTJ87-G82.9)Atypical chest pain (ICD-786.59) (QGX95-F87.89)Nicotine dependence, other tobacco product, uncomplicated (UKI65-B81.290)Hematochezia (ICD-578.1) (MDV46-B05.1)Encounter for general adult medical examination with abnormal findings (ICD-V70.0) (CIJ29-E33.01)Current Medications: MUCINEX DM 30- 600 MG ORAL TABLET EXTENDED RELEASE 12 HOUR (DEXTROMETHORPHAN-GUAIFENESIN) take one tablet twice daily for 4 days; Route: ORALCurrent Allergies: ADHESIVE TAPE (Critical)Past Medical History:(reviewed - no changes required) AnxietyDepressionADHDClot in right leg - patient seen in ER in nov 2019 Dental Chart: Procedures:Type - CDT Code - Description B - (D0150) Comprehensive oral evaluation - new or established patient (Performed by Iris Kelley DMD) B - (D0210) Intraoral, complete series of radiographic images (Performed by Taryn Florence) Treatments:Type - CDT Code - Description T - (D2140) Amalgam-one surface, primary or permanent on Tooth # 28 on Tooth Surface B (Performed by Taryn Florence) T - (D2150) Amalgam, 2 surfaces, primary or permanent on Tooth # 2 on Tooth Surface DB (Performed by Taryn Florence) T - (D 2331) Resin, 2 surfaces, anterior on Tooth # 7 on Tooth Surface LM (Performed by Taryn Florence) T - (D2140) Amalgam-one surface, primary or permanent on Tooth # 14 on Tooth Surface L (Performed by Taryn Florence) T - (D7140) Extraction, erupted tooth or exposed root (elevation and/or forceps removal) on Tooth # 19 (Performed by Taryn Florence) T - (D7140) Extraction, erupted tooth or exposed root (elevation and/or forceps removal) on Tooth # 32 (Performed by Taryn Florence) T - (D2140) Amalgam-one surface, primary or permanent on Tooth # 30 on Tooth Surface B (Performed by Taryn Florence) T - (D2331) Resin, 2 surfaces, anterior on Tooth # 9 on Tooth Surface LD (Performed by Taryn Florence) T - (D2140) Amalgam-one surface, primary or permanent on Tooth # 31 on Tooth Surface B (Performed by Taryn Florence) T - (D2150) Amalgam, 2 surfaces, primary or permanent on Tooth # 21 on Tooth Surface DO (Performed by Taryn Florence) T - (D2335) Resin, 4 or more surfaces or involving incisal angle (anterior) on Tooth # 10 on Tooth Surface FMDL (Performed by Taryn Florence) T - (D2331) Resin, 2 surfaces, anterior on Tooth # 8 on Tooth Surface DL (Performed by Taryn Florence) T - (D2161) Amalgam, 4 or more surfaces, primary or permanent on Tooth # 3 on Tooth Surface DOML (Performed by Taryn Florence) T - (D2150) Amalgam, 2 surfaces, primary or permanent on Tooth # 20 on Tooth Surface DO (Performed by Taryn Florence) T - (D7140) Extraction, erupted tooth or exposed root (elevation and/or forceps removal) on Tooth # 18 (Performed by Taryn Florence) Existing:Type - CDT Code - Description[E] Decay On #10 Surface MFDL, #14 Surface L, #2 Surface DB, #20 Surface DO, #21 Surface DO, #28 Surface B, #3 Surface DOML, #30 Surface B, #31 Surface B, #7 Surface ML, #8 Surface DL, #9 Surface DL[E] Amalgam Mandaeism On #13 Surface DO, #14 Surface LMOD, #15 Surface BMOD, #18 Surface O, #19 Surface MOD, #2 Surface MOB, #20 Surface DO, #29 Surface DO, #3 Surface DOM, #30 Surface DOMB, #31 Surface MOB, #4 Surface OD, #5 Surface DO[E] Missing - [place] and Root On #1 Surface O Region XR, #16 Surface O Region XR, #17 Surface O Region XR Chart Notes:antolin (Jan 24 2020 10:03AM): [facility]- HBP 145 /80 , Clot in right leg - seen in the ER in Nov 2019 Comp exam, FMXPatient is brushing once/day, flossing regularly using plackers and uses Listerine zero total care Marginal and interproximal calculus in sextant 5. Trace sub gingival calculus seen in radiographs. OHI-brushing am pm, flossing and then using Listerine zero total carePatient was cooperativeNV-Taryn Francis by antolin (01/24/2020 10:02 AM): ; jlsyl (Jan 24 2020 12:15PM): Additional PPE requirements due to COVID-19 in the dental setting, N95, surgical mask, hair covering, gown and shield [facility](-). CC: none. Reviewed Xrays. Exam: caries detected. OCS: WNL IO/ EO completed, No significant hard findings upon clinical exam Pt was cooperative.OHI givenReferral: Ext with Dr. Chirinos:Taryn Russell by ras (01/24/2020 12:15 PM): Tooth Notes and Watches:- Tooth 18 Note: Referred to Sherie Croft DDS by kelly (01/21/2020 11:51 AM): - Tooth 19 Note: Referred to Sherie Croft DDS by kelly (01/21/2020 11:51 AM): Assessment & Plan Medications:MUCINEX DM 30-600 MG ORAL TABLET EXTENDED RELEASE 12 HOURAllergies:ADHESIVE TAPE (Critical) Name Value Range Interpretation Code Description Data Ivania rce(s) Supporting Document(s) ID Date Data Source [id number] 01/21/2020 11:28:46 AM EDT [facility] Current Problems: DENTAL CARIES EXTENDIN G INTO PULP (ICD-521.03) (ICD10- K02.63)upper respiratory infection (ICD-465.9) (AIR47-V69.9)Diarrhea, unspecified (ICD-787.91) (UYK92-I86.7)Anxiety disorder, unspecified (ICD10- F41.9)Atypical chest pain (ICD-786.59) (BNX86-F74.89)Nicotine dependence, other tobacco product, uncomplicated (PAG42-I44.290)Hematochezia (ICD-578.1) (ICD10- K92.1)Encounter for general adult medical examination with abnormal findings (ICD-V70.0) (ABI31-R27.01)Problem list reviewed during this update.Current Medications: MUCINEX DM 30-600 MG ORAL TABLET EXTENDED RELEASE 12 HOUR (DEXTROM ETHORPHAN-GUAIFENESIN) take one tablet twice daily for 4 days; Route: ORALMedication list reviewed during this update.Current Allergies: ADHESIVE TAPE (Critical)Allergy list reviewed during this update. Dental Chart: Procedures:Type - CDT Code - Description B - (D0230) Intraoral, periapical, each additional radiographic image on Tooth # 15 (Performed by Sherie Kendall DDS) B - (D0140) Limited oral evaluation - problem focused on Tooth # 18 (Performed by Sherie Kendall DDS) B - (D0220) Intraoral, periapical, first radiographic image on Tooth # 18 (Performed by Sherie Kendall DDS) Treatments:Type - CDT Code - Description T - (D2150) Amalgam, 2 surfaces, primary or permanent on Tooth # 14 on Tooth Surface DO (Performed by Sherie Kendall DDS) T - (D2150) Amalgam, 2 surfaces, primary or permanent on Tooth # 15 on Tooth Surface MO (Performed by Sherie Kendall DDS) Chart Notes:osvaldo (Jan 21 2020 12:33PM): Additional PPE requirements due to COVID-19 in the dental setting, N95, s urgical mask, hair covering, gown and shield.S: CC::" I am pretty sure I ahve an infection and a broken tooth. I am in excruciating painO: RMHx (-)no problems, no allergy to any meds, took hydrocodone around 8 am this morning. Taking ibuprophen , ammoxicillin and hydrocodone.HPI: [address]: 3 BP: 158/94 P: 59( Per Pt has a med appt next door and will talk to PCP about BP, PA #15 , 18, 14 and 15 have recurrent decay under large fillings, 19 and 18 have huge decay. Positive to palpation and percussion. Draining abscess buccl # 18. A: DDS recommends ext 18 & 19, 14 & 15 restorations . DX: abscess # 18P:Refer to OS if Dr. Katz can not do ext. Pt to complete all of his antibiotics.Informed Pt about new pain management policy of the clinic regarding about narcotic,told pt to alternate Ibuprophen 600- 800mg and tylenol 500mg every 4 to 6 hrs for pain when needed. Assisted By: [place]: Sherie Rico DDS (01/21/2020 12:33 PM): Tooth Notes and Watches:- Tooth 18 Note: Referred to Sherie Croft DDS by kelly (01/21/2020 11:51 AM): - Tooth 19 Note: Referred to Sherie Croft DDS by kelly (01/21/2020 11:51 AM): Assessment & Plan Problems:Added: DENTAL CARIES EXTENDING INTO PULP (ICD-521.03) (ICD10- K02.63)Medications:MUCINEX DM 30-600 MG ORAL TABLET EXTENDED RELEASE 12 HOURAllergies:ADHESIVE TAPE (Critical)Orders:Oral Surgery Referral [CPT-94625] Name Value Range Interpretation Code Description Data Ivania rce(s) Supporting Document(s) Procedure Vital Signs ID Date Data Source UNK Name Value Range Interpretation Code Description Data Source(s) Body weight 2889.6 [oz_av] 2889.6 [oz_av] ATHEN A ([facility]) Systolic blood pressure 149 mm[Hg] 149 mm[Hg] A [facility] ([facility]) Systolic blood pressure 138 mm[Hg] 138 mm[Hg] A [facility] ([facility]) Body mass index (BMI) [Ratio] 24.8 kg/m2 24.8 k g/m2 EDY ([facility]) Body height 71.5 [in_i] 71.5 [in_i] EDY ([facility]) Diastolic blood pressure 96 mm[Hg] 96 mm[Hg] EDY ([facility]) Diastolic blood pressure 94 mm[Hg] 94 mm[Hg] EDY ([facility]) Body weight 2889.6 [oz_av] 2889.6 [oz_av] ATHEN A ([facility]) Systolic blood pressure 149 mm[Hg] 149 mm[Hg] A THENA ([facility]) Systolic blood pressure 138 mm[Hg] 138 mm[Hg] A THENA ([facility]) Body mass index (BMI) [Ratio] 24.8 kg/m2 24.8 k g/m2 EDY ([facility]) Body height 71.5 [in_i] 71.5 [in_i] EDY ([facility]) Diastolic blood pressure 96 mm[Hg] 96 mm[Hg] EDY ([facility]) Diastolic blood pressure 94 mm[Hg] 94 mm[Hg] EDY ([facility]) Patient Treatment Plan of Care Planned Activity Planned Date Details Description Data Source (s) Ondansetron 8 MG Disintegrating Oral Tablet EDY ([facility]) Naproxen 500 MG Oral Tablet EDY ([facility]) Ibuprofen 800 MG Oral Tablet EDY ([facility]) Acetaminophen 325 MG / Hydrocodone Bitartrate 5 MG Oral Tablet EDY ([facility]) Amoxicillin 875 MG / Clavulanate 125 MG Oral Tablet EDY ([facility]) Ondansetron 8 MG Disintegrating Oral Tablet EDY ([facility]) Naproxen 500 MG Oral Tablet EDY ([facility]) [facility]rofen 800 [facility] Acetaminophen 325 MG / Hydro[facility]one Bitartrate 5 [facility] Amoxicillin 875 MG / Clavulanate 125 MG Oral Tablet EDY ([facility])
--- OUTSIDE RECORDS SUMMARY | 2020-05-08 13:49 | CCD ---
Author Organization Unknown Address [address] [place] [address] Phone [phone] Care Team Providers Care Respiratory Scientist Name Role Phone Patrick Patterson Unavailable Unavailable Allergies Code Code System Name Reaction Severity Status Onset Adhesive Tape Active 12/06/2016 Medications Name Status Start Date Stop Date amoxicillin 875 mg-potassium clavulanate 125 mg tablet Completed 02/16/2020 hydrocodone 5 mg-acetaminophen 325 mg tablet Completed 02/16/2020 hydroxyzine HCl Active Not available ibuprofen 800 mg tablet Completed 02/16/20 20 naproxen 500 mg tablet Completed 0 ondansetron 8 mg disintegrating tablet Completed 02/16/2020 Problems Name Status Onset Date Source Procedure by Method Active 12/06/2016 History Nicotine Dependence Active 05/28/2017 History Melena Active 05/28/2017 History Chest Pain Active 05/28/2017 History Diarrhea Active 07/03/[address] Concept Active 07/03/2017 History Disorder of Upper Respiratory System Active 08/26/2017 History Procedures Date Name Performed by Tooth Extraction Notes: 2 Information not available Notes: No known surgical history Results Lab Results None recorded. Past Encounters 02/16/2020 Adult Health Examination; Superficial Thrombophlebitis Patrick Patterson MD: [address] [place] [address], Ph. Social History Tobacco Smoking Status Heavy Tobacco Smoker (1/2 PPD) Vaccine List None recorded. Plan of Care Reminders Provider Appointments None recorded. Lab None recorded. Referral None recorded. Procedures None recorded. Surgeries None recorded. Imaging None recorded. Vitals Height Weight BMI Blood Pressure 71.5 in 180 lbs 9.6 oz 24.8 kg/m2 (1) 149/96 m m[Hg] (2) 138/94 mm[Hg]
--- OUTSIDE RECORDS SUMMARY | 2020-05-08 13:49 | CCD ---
Author Organization Unknown Address [address] [place] [address] Phone [phone] Care Team Providers Care Theatrical Variety Agent Name Role Phone Patrick Patterson Unavailable Unavailable [...] Results Lab Results None recorded. Past Encounters 03/20/2020 Adult Health Examination Patrick Patterson MD: [address] [place] [address], Ph. 02/16/2020 Adult Health Examination; Superficial Thrombophlebitis Patrick Patterson MD: [address] [place] [address], Ph. Social History Tobacco Smoking Status Heavy [...]
--- NOTE | 2020-05-08 15:58 | REP ---
INDICATION: concern for clot. COMPARISON: Comparison study January 07, 2020.. TECHNIQUE: Right lower extremity duplex venous sonography. FINDINGS: The deep veins are anechoic and fully compressible from the groin to the popliteal fossa in the right lower extremity. Color flow imaging is homogeneous. Spectral Doppler interrogation demonstrates intact respiratory variation in flow and normal manual augmentation of flow. There is no evidence of deep vein thrombosis. IMPRESSION: Negative right lower extremity duplex venous ultrasound. No evidence of deep vein thrombosis. <Electronically signed by Lior Rivera > 05/08/20 1325
--- OUTSIDE RECORDS SUMMARY | 2020-05-08 16:10 | CCD ---
Author Author [facility] Organization [facility] Address Unknown Phone Unavailable Care Team Providers Care Supervisor Fleshing Name Role Phone Lily Patterson MD Unavailable Unavailable Lily Patterson [...] Unavailable Unavailable Lily Patterson MD Unavailable Unavailable iLly Patterson MD Unavailable Unavailable Lily Patterson MD [...] Lily Patterson MD Unavailable Unavailable Armas, Mohit CRIME SCENE SPECIALIST CRIME SCENE SPECIALIST Unavailable Unavailable Armas, F Mohit CRIME SCENE SPECIALIST-BC Unavailable Unavailable Armas, F Mohit CRIME SCENE SPECIALIST-BC Unavailable Unavailable Armas, F Mohit CRIME SCENE SPECIALIST-BC Unavailable Unavailable Armas, F Mohit CRIME SCENE SPECIALIST-BC Unavailable Unavailable Armas, F Mohit CRIME SCENE SPECIALIST-BC Unavailable Unavailable Armas, F Mohit CRIME SCENE SPECIALIST-BC Unavailable Unavailable Armas, F Mohit CRIME SCENE SPECIALIST-BC Unavailable Unavailable Armas, F Mohit CRIME SCENE SPECIALIST-BC Unavailable Unavailable Armas, F Mohit CRIME SCENE SPECIALIST-BC Unavailable Unavailable Armas, F Mohit CRIME SCENE SPECIALIST-BC Unavailable Unavailable Armas, F Mohit CRIME SCENE SPECIALIST-BC Unavailable Unavailable Armas, F Mohit CRIME SCENE SPECIALIST-BC Unavailable Unavailable Armas, F Mohit CRIME SCENE SPECIALIST-BC Unavailable Unavailable Armas, F Mohit CRIME SCENE SPECIALIST-BC Unavailable Unavailable Armas, F Mohit CRIME SCENE SPECIALIST-BC Unavailable Unavailable Armas, F Mohit CRIME SCENE SPECIALIST-BC Unavailable Unavailable Armas, F Mohit CRIME SCENE SPECIALIST-BC Unavailable Unavailable Armas, F Mohit CRIME SCENE SPECIALIST-BC Unavailable Unavailable Armas, F Mohit CRIME SCENE SPECIALIST-BC Unavailable Unavailable Armas, F Mohit CRIME SCENE SPECIALIST-BC Unavailable Unavailable Armas, F Mohit CRIME SCENE SPECIALIST-BC Unavailable Unavailable Armas, F Mohit CRIME SCENE SPECIALIST-BC Unavailable Unavailable Re-disclosure Warning The records that [...] is protected by Article 27-F of the [facility] Public Health law. If you continue you may have access to information: Regarding HIV / AIDS; Provided by facilities licensed or operated by the [facility] Office of Mental Health; or Provided by the [facility] Office for People With Developmental Disabilities. If such information is present, then the following [facility] mandated warning applies: This information has been [...] law may result in a fine or skilled nursing sentence or both. A general authorization for the release of medical or other information is NOT sufficient authorization for further disc losure. Family History Family Member Name Family Member Gender Family Member Status Date o f Status Description Data Source(s) Unknown Unknown Problem MEDENT ([facility] Justin Koo MD ) Encounters Encounter Providers Location Date Indications Data Source(s ) Patrick Patterson MD: [address] [place] [address], Ph. Attender: Patrick Patterson MD [facility] Medical 03/20/2020 12:00:00 AM EST EDY ([facility]) Patrick Patterson MD: [address] [place], [place] [address], Ph. Attender: Patrick Patterson MD [facility] Medical 02/16/2020 12:00:00 AM EST EDY ([facility]) Patrick Patterson MD: [address] [place] [phone], Ph. Attender: Patrick Patterson MD [facility] Medical 02/16/2020 12:00:00 AM EST EDY ([facility]) Outpatient Attender: LUZMARIA DUTTA FP 02/02/2020 12:12:00 PM [facility] Outpatient Attender: Mohit SANZ FP 01/26/2020 01: 20:00 PM [facility] Outpatient Attender: ULZMARIA DUTTA FP 01/26/2020 12:19:00 PM [facility] Outpatient Attender: Mohit SANZ FP 01/25/2020 11: 55:01 AM [facility] Outpatient Attender: Mohit SANZ FP 01/24/2020 12: 16:02 PM [facility] Outpatient Attender: LUZMARIA DUTTA FP 01/24/2020 10:45:02 AM EST [facility] Outpatient Attender: LUZMARIA DUTTA FP 01/21/2020 12:34:01 PM EDT [facility] Outpatient Attender: Mohit SANZ FP 01/21/2020 12: 34:01 PM EDT [facility] Outpatient Attender: LUZMARIA DUTTA FP 01/21/2020 11:53:00 AM EDT [facility] Outpatient Attender: LUZMARIA DUTTA FP 01/21/2020 11:38:00 AM EDT [facility] Outpatient Attender: LUZMARIA DUTTA FP 01/21/2020 11:34:00 AM EDT [facility] Outpatient Attender: LUZMARIA DUTTA FP 01/21/2020 11:33:00 AM EDT [facility] Outpatient Attender: LUZMARIA DUTTA FP 01/21/2020 11:30:00 AM EDT [facility] Outpatient Attender: LUZMARIA DUTTA FP 01/21/2020 11:29:00 AM EDT [facility] Outpatient Attender: LUZMARIA DUTTA FP 01/17/2020 01:25:00 PM EDT [facility] Outpatient Attender: Mohit SANZ FP 06/07/2019 09: 27:00 AM EDT [facility] Medications Medication Brand Name Start Date Product Form Dose Route Admi nistrative Instructions Pharmacy Instructions Status Indications Reaction Description Data Source(s) Ondansetron 8 MG Disintegrating Oral Tab let ondansetron 8 mg disintegrating tablet ondansetron 8 mg disintegrating tablet completed ondansetron 8 MG Disintegrating Oral Tablet EDY ([facility]) Amoxicillin 875 MG / Clavulanate 125 MG Oral Tablet amoxicillin 875 mg-potassium clavulanate 125 mg tablet amoxicillin 875 mg-potassium clavulanate 125 mg tablet completed amoxicillin 875 MG / clavulanate 125 MG Oral Tablet EDY ([facility]) Amoxicillin 875 MG / Clavulanate 125 MG Oral Tablet amoxicillin 875 mg-potassium clavulanate 125 mg tablet amoxicillin 875 mg-potassium clavulanate 125 mg tablet completed amoxicillin 875 MG / clavulanate 125 MG Oral Tablet EDY ([facility]) Acetaminophen 325 MG / Hydrocodone Juanjo trate 5 MG Oral Tablet hydrocodone 5 mg- acetaminophen 325 mg tablet hydrocodone 5 mg-acetaminophen 325 mg tablet completed acetaminophen 325 MG / hydrocodone bitartrate 5 MG Oral Tablet EDY ([facility]) Ibuprofen 800 MG Oral Tablet ibuprofen 800 mg tablet ibuprofen 8 00 mg tablet completed ibuprofen 800 MG Oral Tablet EDY ([facility]) Ibuprofen 800 MG Oral Tablet ibuprofen 800 mg tablet ibuprofen 8 00 mg tablet completed ibuprofen 800 MG Oral Tablet EDY ([facility]) Naproxen 500 MG Oral Tablet naproxen 500 mg tablet naproxen 500 mg ta blet completed naproxen 500 MG Oral Tablet EDY ([facility]) Naproxen 500 MG Oral Tablet naproxen 500 mg tablet naproxen 500 mg ta blet completed naproxen 500 MG Oral Tablet EDY ([facility]) Acetaminophen 325 MG / Hydrocodone Juanjo trate 5 MG Oral Tablet hydrocodone 5 mg- acetaminophen 325 mg tablet hydrocodone 5 mg-acetaminophen 325 mg tablet completed acetaminophen 325 MG / hydrocodone bitartrate 5 MG Oral Tablet EDY ([facility]) Ondansetron 8 MG Disintegrating Oral Tab let ondansetron 8 mg disintegrating tablet ondansetron 8 mg disintegrating tablet completed ondansetron 8 MG Disintegrating Oral Tablet MAKAWELI ([facility]) Insurance Providers Payer name Policy type / Coverage type Policy ID Covered republican ID Covered republican's relationship to singer Policy Singer Plan Information [facility]LY [facility] COMMUNITY PLAN MCDO [id number] SP [id number] SELF PAY ONLY [id number] SP [id number] Managed Care - [facility] P [id number] S [id number] Medicaid S [id number] S [id number] D Managed Care [facility] O [id number] S [id number] D Managed Care [facility] O [id number] S [id number] [facility] [id number] SP [id number] Medicaid S [id number] S [id number] Managed Care - [facility] P [id number] S [id number] Medicaid O [id number] S [id number] MEDICAID [id number] SP [id number] SELF PAY ONLY [id number] SP [id number] Self Pay P [id number] S [id number] MEDICAID -PHYSICIAN [id number] MEDICAID - O/P EMERGENCY ROOM [id number] Medicaid Dental P [id number] S [id number] [facility] [id number] SP [id number] [facility] ENID [id number] SP [id number] JOHN [id number] SP [id number] [facility] ENID [id number] SP [id number] [facility] Commercial Self [employer] Hmo Commercial Self [facility] COMMUNITY PLAN MCDO [id number] SP [id number] SELF PAY UNAVAILABLE SP UNAVAILA BLE Problems, Conditions, and Diagnoses Code Display Name Description Problem Type Effective Dates Data Source(s) 521.03 DENTAL CARIES EXTENDING INTO PULP DENTAL CARIES EXTEND ING INTO PULP 01/21/2020 12:33:40 PM EDT [facility] Results ID Date Data Source [id number] 03/25/2020 12:00:00 AM EST [facility] Name Value Range Interpretation Code Description Data Ivania rce(s) Supporting Document(s) SARS-CoV-2 (COVID-19) RNA [Presence] in Respiratory specimen by KEI with probe detection [facility] This lab was ordered by [facility] and reported by [employer] ID Date Data Source [id number] 01/26/2020 12:22:55 PM EST [facility] Current Problems: DENTAL CARIES EXTENDIN G INTO PULP (ICD-521.03) (ICD10- K02.63)upper respiratory infection (ICD-465.9) (IRO68-I65.9)Diarrhea, unspecified (ICD-787.91) (JEM40-H82.7)Anxiety disorder, unspecified (ICD10- F41.9)Atypical chest pain (ICD-786.59) (LQU03-A98.89)Nicotine dependence, other tobacco product, uncomplicated (HWS13-Z30.290)Hematochezia (ICD-578.1) (ICD10- K92.1)Encounter for general adult medical examination with abnormal findings (ICD-V70.0) (UDW05-N87.01)Current Medications: MUCINEX DM 30-600 MG ORAL TABLET [...] AM): Assessment & Plan Orders:Oral Surgery Referral [CPT-82295] Name Value Range Interpretation Code Description Data Ivania rce(s) Supporting Document(s) ID Date Data Source [id number] 01/25/2020 11:00:24 AM [facility] Current Problems: DENTAL CARIES EXTENDIN G INTO PULP (ICD-521.03) (ICD10- K02.63)upper respiratory infection (ICD-465.9) (GOJ63-A16.9)Diarrhea, unspecified (ICD-787.91) (AYK41-C97.7)Anxiety disorder, unspecified (ICD10- F41.9)Atypical chest pain (ICD-786.59) (LMU67-R50.89)Nicotine dependence, other tobacco product, uncomplicated (HHU16-J99.290)Hematochezia (ICD-578.1) (ICD10- K92.1)Encounter for general adult medical examination with abnormal findings (ICD-V70.0) (AJD61-M78.01)Current Medications: MUCINEX DM 30-600 MG ORAL TABLET [...] DMD) Chart Notes:jlam (Jan 25 2020 11:54AM): [facility] (-)per pt. [email or web address] Additional PPE requirements due to COVID-19 in [...] rce(s) Supporting Document(s) ID Date Data Source [id number] 01/24/2020 08:56:40 AM [facility] Vital SignsBlood Pressure: 140/85 Patient History Medical History:AnxietyDepressionADHDClot in right leg - patient seen in ER in nov 2019Family History:Hyperthyroidism (Mother)Social/Personal History: Smoking Status: current every day smokerCurrent Problems: DENTAL CARIES EXTENDING INTO PULP (ICD-521.03) (NAK52-W92.63)upper respiratory infection (ICD-465.9) (ICD10- J06.9)Diarrhea, unspecified (ICD-787.91) (UMK52-G83.7)Anxiety disorder, unspecified (KSB13-N20.9)Atypical chest pain (ICD-786.59) (CZM00-H22.89)Nicotine dependence, other tobacco product, uncomplicated (ZPN37-R04.290)Hematochezia (ICD-578.1) (VVK35-J36.1)Encounter for general adult medical examination with abnormal findings (ICD-V70.0) (IRM01-Z45.01)Current Medications: MUCINEX DM 30- 600 MG ORAL [...] #8 Surface DL, #9 Surface DL[E] [employer] On #13 Surface DO, #14 Surface LMOD, #15 Surface BMOD, #18 Surface O, #19 Surface MOD, #2 Surface MOB, #20 Surface DO, #29 Surface DO, #3 Surface DOM, #30 Surface DOMB, #31 Surface MOB, #4 Surface OD, #5 Surface DO[E] Missing - [employer] On #1 Surface O Region [...] surgical mask, hair covering, gown and shield [facility](-). CC: none. Reviewed Xrays. Exam: caries detected. [...] rce(s) Supporting Document(s) ID Date Data Source [id number] 01/21/2020 11:28:46 AM EDT [facility] Current Problems: DENTAL CARIES EXTENDIN G INTO PULP (ICD-521.03) (ICD10- K02.63)upper respiratory infection (ICD-465.9) (TED96-Z97.9)Diarrhea, unspecified (ICD-787.91) (YOO15-C99.7)Anxiety disorder, unspecified (ICD10- F41.9)Atypical chest pain (ICD-786.59) (VZR28-H37.89)Nicotine dependence, other tobacco product, uncomplicated (ZWS30-Z06.290)Hematochezia (ICD-578.1) (ICD10- K92.1)Encounter for general adult medical examination with abnormal findings (ICD-V70.0) (WAC50-S59.01)Problem list reviewed during this update.Current Medications: MUCINEX [...] RELEASE 12 HOURAllergies:ADHESIVE TAPE (Critical)Orders:Oral Surgery Referral [CPT-42609] Name Value Range Interpretation Code Description Data Ivania rce(s) Supporting Document(s) Procedure Vital Signs ID Date Data Source UNK Name Value Range Interpretation Code Description Data Source(s) Body weight 2889.6 [oz_av] 2889.6 [oz_av] ATHEN A ([facility]) Systolic blood pressure 149 mm[Hg] 149 mm[Hg] A [facility] ([facility]) Systolic blood pressure 138 mm[Hg] 138 mm[Hg] A [facility] ([facility]) Body mass index (BMI) [Ratio] 24.8 kg/m2 24.8 k g/m2 EDY ([facility]) Body height 71.5 [in_i] 71.5 [in_i] EDY ([facility]) Diastolic blood pressure 96 mm[Hg] 96 mm[Hg] EDY ([facility]) Diastolic blood pressure 94 mm[Hg] 94 mm[Hg] EDY ([facility]) Body weight 2889.6 [oz_av] 2889.6 [oz_av] ATHEN A ([facility]) Systolic blood pressure 149 mm[Hg] 149 mm[Hg] A THENA ([facility]) Systolic blood pressure 138 mm[Hg] 138 mm[Hg] A THENA ([facility]) Body mass index (BMI) [Ratio] 24.8 kg/m2 24.8 k g/m2 EDY ([facility]) Body height 71.5 [in_i] 71.5 [in_i] EDY ([facility]) Diastolic blood pressure 96 mm[Hg] 96 mm[Hg] EDY ([facility]) Diastolic blood pressure 94 mm[Hg] 94 mm[Hg] EDY ([facility]) Patient Treatment Plan of Care Planned Activity Planned Date Details Description Data Source (s) Ondansetron 8 MG Disintegrating Oral Tablet EDY ([facility]) Naproxen 500 MG Oral Tablet EDY ([facility]) Ibuprofen 800 MG Oral Tablet EDY ([facility]) Acetaminophen 325 MG / Hydrocodone Bitartrate 5 MG Oral Tablet EDY ([facility]) Amoxicillin 875 MG / Clavulanate 125 MG Oral Tablet EDY ([facility]) Ondansetron 8 MG Disintegrating Oral Tablet EDY ([facility]) Naproxen 500 MG Oral Tablet EDY ([facility]) [facility]fen [facility] Acetaminophen 325 MG / Hydrocodone Bitartrate 5 [facility] Amoxicillin 875 MG / Clavulanate 125 MG Oral Tablet EDY ([facility])
== END 2020-05-08 16:18 | disposition home or self-care (01) ==
LOC: M ED 13:43
DX: M79.651 Pain in right thigh (principal); Z86.718 Personal history of other venous thrombosis and embolism; F17.210 Nicotine dependence, cigarettes, uncomplicated; F12.20 Cannabis dependence, uncomplicated

== ENCOUNTER 2020-05-15 12:22 | Emergency (ER) | payer OTHER ==
[~2020-05-15] VITALS: Ht 182.9 cm; Wt 78.9 kg
--- OUTSIDE RECORDS SUMMARY | 2020-05-15 13:04 | CCD ---
Author Author [facility] Organization [facility] Address Unknown Phone Unavailable Care Team Providers Care Satellite Communications Engineer Name Role Phone Lily Patterson MD Unavailable [...] Unavailable Unavailable Lily Patterson MD Unavailable Unavailable Lliy Patterson MD Unavailable Unavailable Lily Patterson MD Unavailable Unavailable Liyl Patterson MD Unavailable Unavailable Lily Patterson MD [...] Unavailable Unavailable Lily Patterson MD Unavailable Unavailable Lliy Patterson MD Unavailable Unavailable Lily Patterson MD Unavailable Unavailable Lily Patterson MD Unavailable Unavailable Lily Patterson MD Unavailable Unavailable Lily Patterson MD Unavailable Unavailable Lily Patterson MD Unavailable Unavailable Lily Pattesron MD Unavailable Unavailable Lily Patterson MD Unavailable Unavailable Lily Patterson MD Unavailable Unavailable Lily Patterson MD Unavailable Unavailable Lily Patterson MD Unavailable Unavailable Lily Patterson MD Unavailable Unavailable Lily Patterson MD Unavailable Unavailable Armas, Mohit IRONER SOCK IRONER SOCK Unavailable Unavailable Armas, F Mohit IRONER SOCK-BC Unavailable Unavailable Armas, F Mohit IRONER SOCK-BC Unavailable Unavailable Armas, F Mohit IRONER SOCK-BC Unavailable Unavailable Armas, F Mohit IRONER SOCK-BC Unavailable Unavailable Armas, F Mohit IRONER SOCK-BC Unavailable Unavailable Armas, F Mohit IRONER SOCK-BC Unavailable Unavailable Armas, F Mohit IRONER SOCK-BC Unavailable Unavailable Armas, F Mohit IRONER SOCK-BC Unavailable Unavailable Armas, F Mohit IRONER SOCK-BC Unavailable Unavailable Armas, F Mohit IRONER SOCK-BC Unavailable Unavailable Armas, F Mohit IRONER SOCK-BC Unavailable Unavailable Armas, F Mohit IRONER SOCK-BC Unavailable Unavailable Armas, F Mohit IRONER SOCK-BC Unavailable Unavailable Armas, F Mohit IRONER SOCK-BC Unavailable Unavailable Armas, F Mohit IRONER SOCK-BC Unavailable Unavailable Armas, F Mohit IRONER SOCK-BC Unavailable Unavailable Armas, F Mohit IRONER SOCK-BC Unavailable Unavailable Armas, F Mohit IRONER SOCK-BC Unavailable Unavailable Armas, F Mohit IRONER SOCK-BC Unavailable Unavailable Armas, F Mohit IRONER SOCK-BC Unavailable Unavailable Armas, F Mohit IRONER SOCK-BC Unavailable Unavailable Armas, F Mohit IRONER SOCK-BC Unavailable Unavailable Re-disclosure Warning The records that [...] is protected by Article 27-F of the [facility] Public Health law. If you continue you may have access to information: Regarding HIV / AIDS; Provided by facilities licensed or operated by the [facility] Office of Mental Health; or Provided by the [facility] Office for People With Developmental Disabilities. If such information is present, then the following [facility] mandated warning applies: This information has been [...] law may result in a fine or long-term sentence or both. A general authorization for the release of medical or other information is NOT sufficient authorization for further disc losure. Family History Family Member Name Family Member Gender Family Member Status Date o f Status Description Data Source(s) Unknown Unknown Problem MEDENT ([facility] Justin Koo MD ) Encounters Encounter Providers Location Date Indications Data Source(s ) Patrick Patterson MD: [address] [place] [address] 504, Ph. Attender: Patrick Patterson MD [facility] Medical 03/20/2020 12:00:00 AM EST [facility] ([facility]) Patrick Patterson MD: [address] [place], [place] [address] 504, Ph. Attender: Patrick Patterson MD [facility] Medical 02/16/2020 12:00:00 AM EST [facility] ([facility]) Patrick Patterson MD: [address] [place] [id number], Ph. Attender: Patrick Patterson MD [facility] Medical 02/16/2020 12:00:00 AM EST ED[facility] ([facility]) Outpatient Attender: LUZMARIA DUTTA FP 02/02/2020 12:12:00 PM [facility] Outpatient Attender: Mohit SANZ FP 01/26/2020 01: 20:00 PM [facility] Outpatient Attender: LUZMARIA DUTTA FP 01/26/2020 12:19:00 PM [facility] Outpatient Attender: Mohit SANZ FP 01/25/2020 11: 55:01 AM [facility] Outpatient Attender: Mohit SANZ FP 01/24/2020 12: 16:02 PM [facility] Outpatient Attender: LUZMARIA DUTTA FP 01/24/2020 10:45:02 AM EST [facility] Outpatient Attender: LUZMARIA DUTTA FP 01/21/2020 12:34:01 PM EDT [facility] Outpatient Attender: Mohit SANZ FP 01/21/2020 12: 34:01 PM EDT [facility] Outpatient Attender: LUZMARIA DUTTA FP 01/21/2020 11:53:00 AM EDT [facility] Outpatient Attender: LUZMARIA DUTTA FP 01/21/2020 11:38:00 AM EDT [facility] Outpatient Attender: LUZMARIA DUTTA FP 01/21/2020 11:34:00 AM EDT [facility] Outpatient Attender: LUZMARIA DUTTA FP 01/21/2020 11:33:00 AM EDT [facility] Outpatient Attender: LUZMARIA DUTTA FP 01/21/2020 11:30:00 AM EDT [facility] Outpatient Attender: LUZMARIA DUTTA FP 01/21/2020 11:29:00 AM EDT [facility] Outpatient Attender: LUZMARIA DUTTA FP 01/17/2020 01:25:00 PM EDT [facility] Outpatient Attender: Mohit SANZ FP 06/07/2019 09: 27:00 AM EDT [facility] Medications Medication Brand Name Start Date Product Form Dose Route Admi nistrative Instructions Pharmacy Instructions Status Indications Reaction Description Data Source(s) Ondansetron 8 MG Disintegrating Oral Tab let ondansetron 8 mg disintegrating tablet ondansetron 8 mg disintegrating tablet completed ondansetron 8 MG Disintegrating Oral Tablet EDY ([facility]) Amoxicillin 875 MG / Clavulanate 125 MG Oral Tablet amoxicillin 875 mg-potassium clavulanate 125 mg tablet amoxicillin 875 mg-potassium clavulanate 125 mg tablet completed amoxicillin 875 MG / clavulanate 125 MG Oral Tablet EDY ([facility]) Amoxicillin 875 MG / Clavulanate 125 MG Oral Tablet amoxicillin 875 mg-potassium clavulanate 125 mg tablet amoxicillin 875 mg-potassium clavulanate 125 mg tablet completed amoxicillin 875 MG / clavulanate 125 MG Oral Tablet EDY ([facility]) Acetaminophen 325 MG / Hydrocodone Juanjo trate 5 MG Oral Tablet hydrocodone 5 mg- acetaminophen 325 mg tablet hydrocodone 5 mg-acetaminophen 325 mg tablet completed acetaminophen 325 MG / hydrocodone bitartrate 5 MG Oral Tablet [facility] ([facility]) Ibuprofen 800 MG Oral Tablet ibuprofen 800 mg tablet ibuprofen 8 00 mg tablet completed ibuprofen 800 MG Oral Tablet ED[facility] ([facility]) Ibuprofen 800 MG Oral Tablet ibuprofen 800 mg tablet ibuprofen 8 00 mg tablet completed ibuprofen 800 MG Oral Tablet ED[facility] ([facility]) Naproxen 500 MG Oral Tablet naproxen 500 mg tablet naproxen 500 mg ta blet completed naproxen 500 MG Oral Tablet ED[facility] ([facility]) Naproxen 500 MG Oral Tablet naproxen 500 mg tablet naproxen 500 mg ta blet completed naproxen 500 MG Oral Tablet EDY ([facility]) Acetaminophen 325 MG / Hydrocodone Juanjo trate 5 MG Oral Tablet hydrocodone 5 mg- acetaminophen 325 mg tablet hydrocodone 5 mg-acetaminophen 325 mg tablet completed acetaminophen 325 MG / hydrocodone bitartrate 5 MG Oral Tablet ED[facility] ([facility]) Ondansetron 8 MG Disintegrating Oral Tab let ondansetron 8 mg disintegrating tablet ondansetron 8 mg disintegrating tablet completed ondansetron 8 MG Disintegrating Oral Tablet PEN ARGYL ([facility]) Insurance Providers Payer name Policy type / Coverage type Policy ID Covered constitution party ID Covered constitution party's relationship to singer Policy Singer Plan Information [facility] COMMUNITY PLAN MCDO [id number] SP [id number] SELF PAY ONLY [id number] SP [id number] Managed Care - [facility] P [id number] S [id number] Medicaid S [id number] S [id number] D Managed Care [facility] O [id number] S [id number] D Managed Care [facility] O [id number] S [id number] [facility] [id number] SP [id number] Medicaid S [id number] S [id number] Managed Care - [facility] P [id number] S [id number] Medicaid O [id number] S [id number] MEDICAID [id number] SELF PAY ONLY [id number] SP [id number] Self Pay P [id number] S [id number] MEDICAID -PHYSICIAN [id number] MEDICAID - O/P EMERGENCY ROOM [id number] Medicaid Dental P [id number] [facility] [id number] SP [id number] [facility] ENID [id number] SP [id number] JOHN [id number] SP [id number] [facility] ENID [id number] SP [id number] [place] Care Commercial Self [employer] Care Hmo Commercial Self [facility] COMMUNITY PLAN MCDO [id number] SP [id number] SELF PAY UNAVAILABLE SP UNAVAILA BLE Problems, Conditions, and Diagnoses Code Display Name Description Problem Type Effective Dates Data Source(s) 521.03 DENTAL CARIES EXTENDING INTO PULP DENTAL CARIES EXTEND ING INTO PULP 01/21/2020 12:33:40 PM EDT [facility] Results ID Date Data Source [id number] 03/25/2020 12:00:00 AM EST [facility] Name Value Range Interpretation Code Description Data Ivania rce(s) Supporting Document(s) SARS-CoV-2 (COVID-19) RNA [Presence] in Respiratory specimen by KEI with probe detection [facility] This lab was ordered by [facility] and reported by [employer] ID Date Data Source [id number] 01/26/2020 12:22:55 PM EST [facility] Current Problems: DENTAL CARIES EXTENDIN G INTO PULP (ICD-521.03) (ICD10- K02.63)upper respiratory infection (ICD-465.9) (IJH41-G87.9)Diarrhea, unspecified (ICD-787.91) (LNA14-I07.7)Anxiety disorder, unspecified (ICD10- F41.9)Atypical chest pain (ICD-786.59) (WCX12-O32.89)Nicotine dependence, other tobacco product, uncomplicated (BWW02-Y82.290)Hematochezia (ICD-578.1) (ICD10- K92.1)Encounter for general adult medical examination with abnormal findings (ICD-V70.0) (WWR30-H26.01)Current Medications: MUCINEX DM 30-600 MG ORAL TABLET [...] AM): Assessment & Plan Orders:Oral Surgery Referral [CPT-38803] Name Value Range Interpretation Code Description Data Ivania rce(s) Supporting Document(s) ID Date Data Source [id number] 01/25/2020 11:00:24 AM [facility] Current Problems: DENTAL CARIES EXTENDIN G INTO PULP (ICD-521.03) (ICD10- K02.63)upper respiratory infection (ICD-465.9) (SAB39-R85.9)Diarrhea, unspecified (ICD-787.91) (ALT22-Q17.7)Anxiety disorder, unspecified (ICD10- F41.9)Atypical chest pain (ICD-786.59) (XGH84-M90.89)Nicotine dependence, other tobacco product, uncomplicated (TEB08-Z89.290)Hematochezia (ICD-578.1) (ICD10- K92.1)Encounter for general adult medical examination with abnormal findings (ICD-V70.0) (YEQ85-L74.01)Current Medications: MUCINEX DM 30-600 MG ORAL TABLET [...] DMD) Chart Notes:jlam (Jan 25 2020 11:54AM): [facility] (-)per pt. [email or web address]. Additional PPE requirements due to COVID-19 in [...] rce(s) Supporting Document(s) ID Date Data Source [id number] 01/24/2020 08:56:40 AM [facility] Vital SignsBlood Pressure: 140/85 Patient History Medical History:AnxietyDepressionADHDClot in right leg - patient seen in ER in nov 2019Family History:Hyperthyroidism (Mother)Social/Personal History: Smoking Status: current every day smokerCurrent Problems: DENTAL CARIES EXTENDING INTO PULP (ICD-521.03) (OJG23-I91.63)upper respiratory infection (ICD-465.9) (ICD10- J06.9)Diarrhea, unspecified (ICD-787.91) (ASP62-V05.7)Anxiety disorder, unspecified (EJR12-X45.9)Atypical chest pain (ICD-786.59) (CBI75-U90.89)Nicotine dependence, other tobacco product, uncomplicated (YHX74-K23.290)Hematochezia (ICD-578.1) (QFP88-D46.1)Encounter for general adult medical examination with abnormal findings (ICD-V70.0) (NYW72-F66.01)Current Medications: MUCINEX DM 30- 600 MG ORAL [...] #8 Surface DL, #9 Surface DL[E] [employer] On #13 Surface DO, #14 Surface LMOD, #15 Surface BMOD, #18 Surface O, #19 Surface MOD, #2 Surface MOB, #20 Surface DO, #29 Surface DO, #3 Surface DOM, #30 Surface DOMB, #31 Surface MOB, #4 Surface OD, #5 Surface DO[E] Missing - [place] On #1 Surface O Region [...] surgical mask, hair covering, gown and shield [facility]). CC: none. Reviewed Xrays. Exam: caries [...] rce(s) Supporting Document(s) ID Date Data Source [id number] 01/21/2020 11:28:46 AM EDT [facility] Current Problems: DENTAL CARIES EXTENDIN G INTO PULP (ICD-521.03) (ICD10- K02.63)upper respiratory infection (ICD-465.9) (SJJ56-L79.9)Diarrhea, unspecified (ICD-787.91) (JFG70-G70.7)Anxiety disorder, unspecified (ICD10- F41.9)Atypical chest pain (ICD-786.59) (PRS96-R00.89)Nicotine dependence, other tobacco product, uncomplicated (MEM06-F75.290)Hematochezia (ICD-578.1) (ICD10- K92.1)Encounter for general adult medical examination with abnormal findings (ICD-V70.0) (JYP27-G18.01)Problem list reviewed during this update.Current Medications: MUCINEX [...] RELEASE 12 HOURAllergies:ADHESIVE TAPE (Critical)Orders:Oral Surgery Referral [CPT-11582] Name Value Range Interpretation Code Description Data Ivania rce(s) Supporting Document(s) Procedure Vital Signs ID Date Data Source UNK Name Value Range Interpretation Code Description Data Source(s) Body weight 2889.6 [oz_av] 2889.6 [oz_av] ATHEN A ([facility]) Systolic blood pressure 149 mm[Hg] 149 mm[Hg] A [facility] ([facility]) Systolic blood pressure 138 mm[Hg] 138 mm[Hg] A [facility] ([facility]) Body mass index (BMI) [Ratio] 24.8 kg/m2 24.8 k g/m2 ED[facility] ([facility]) Body height 71.5 [in_i] 71.5 [in_i] EDY ([facility]) Diastolic blood pressure 96 mm[Hg] 96 mm[Hg] EDY ([facility]) Diastolic blood pressure 94 mm[Hg] 94 mm[Hg] ED[facility] ([facility]) Body weight 2889.6 [oz_av] 2889.6 [oz_av] ATHEN A ([facility]) Systolic blood pressure 149 mm[Hg] 149 mm[Hg] A THENA ([facility]) Systolic blood pressure 138 mm[Hg] 138 mm[Hg] A THENA ([facility]) Body mass index (BMI) [Ratio] 24.8 kg/m2 24.8 k g/m2 ED[facility] ([facility]) Body height 71.5 [in_i] 71.5 [in_i] ED[facility] ([facility]) Diastolic blood pressure 96 mm[Hg] 96 mm[Hg] ED[facility] ([facility]) Diastolic blood pressure 94 mm[Hg] 94 mm[Hg] [facility] ([facility]) Patient Treatment Plan of Care Planned Activity Planned Date Details Description Data Source (s) Ondansetron 8 MG Disintegrating Oral Tablet ED[facility] ([facility]) Naproxen 500 MG Oral Tablet ED[facility] ([facility]) Ibuprofen 800 MG Oral Tablet ED[facility] ([facility]) Acetaminophen 325 MG / Hydrocodone Bitartrate 5 MG Oral Tablet ED[facility] ([facility]) Amoxicillin 875 MG / Clavulanate 125 MG Oral Tablet [facility] ([facility]) Ondansetron 8 MG Disintegrating Oral Tablet ED[facility] ([facility]) Naproxen 500 MG Oral Tablet [facility] ([facility]) [facility] Acetaminophen 325 MG / [facility]codone Bitartrate 5 [facility] Amoxicillin 875 MG / Clavulanate 125 MG Oral Tablet ED[facility] ([facility])
--- OUTSIDE RECORDS SUMMARY | 2020-05-15 14:49 | CCD ---
Author Author [facility] Organization [facility] Address Unknown Phone Unavailable Care Team Providers Care Hydrographical Technical Officer Name Role Phone Lily Patterson MD Unavailable [...] Lily Patterson MD Unavailable Unavailable Armas, Mohit SALES OPERATIONS SALES OPERATIONS Unavailable Unavailable Armas, F Mohit SALES OPERATIONS-BC Unavailable Unavailable Armas, F Mohit SALES OPERATIONS-BC Unavailable Unavailable Armas, F Mohit SALES OPERATIONS-BC Unavailable Unavailable Armas, F Mohit SALES OPERATIONS-BC Unavailable Unavailable Armas, F Mohit SALES OPERATIONS-BC Unavailable Unavailable Armas, F Mohit SALES OPERATIONS-BC Unavailable Unavailable Armas, F Mohit SALES OPERATIONS-BC Unavailable Unavailable Armas, F Mohit SALES OPERATIONS-BC Unavailable Unavailable Armas, F Mohit SALES OPERATIONS-BC Unavailable Unavailable Armas, F Mohit SALES OPERATIONS-BC Unavailable Unavailable Armas, F Mohit SALES OPERATIONS-BC Unavailable Unavailable Armas, F Mohit SALES OPERATIONS-BC Unavailable Unavailable Armas, F Mohit SALES OPERATIONS-BC Unavailable Unavailable Armas, F Mohit SALES OPERATIONS-BC Unavailable Unavailable Armas, F Mohit SALES OPERATIONS-BC Unavailable Unavailable Armas, F Mohit SALES OPERATIONS-BC Unavailable Unavailable Armas, F Mohit SALES OPERATIONS-BC Unavailable Unavailable Armas, F Mohit SALES OPERATIONS-BC Unavailable Unavailable Armas, F Mohit SALES OPERATIONS-BC Unavailable Unavailable Armas, F Mohit SALES OPERATIONS-BC Unavailable Unavailable Armas, F Mohit SALES OPERATIONS-BC Unavailable Unavailable Armas, F Mohit SALES OPERATIONS-BC Unavailable Unavailable Re-disclosure Warning The records that [...] is protected by Article 27-F of the [facility] Public Health law. If you continue you may have access to information: Regarding HIV / AIDS; Provided by facilities licensed or operated by the [facility] Office of Mental Health; or Provided by the [facility] Office for People With Developmental Disabilities. If such information is present, then the following [facility] mandated warning applies: This information has been [...] law may result in a fine or shelter sentence or both. A general authorization for the release of medical or other information is NOT sufficient authorization for further disc losure. Family History Family Member Name Family Member Gender Family Member Status Date o f Status Description Data Source(s) Unknown Unknown Problem MEDENT ([facility] Justin Koo MD ) Encounters Encounter Providers Location Date Indications Data Source(s ) Patrick Patterson MD: [address] [place] [address] 504, Ph. Attender: Patrick Patterson MD [facility] Medical 03/20/2020 12:00:00 AM EST [place] ([facility]) Patrick Patterson MD: [address] [place], [place] [id number] 504, Ph. Attender: Patrick Patterson MD [facility] Medical 02/16/2020 12:00:00 AM EST [place] ([facility]) Patrick Patterson MD: [address] [place] [id number], Ph. Attender: Patrick Patterson MD [facility] Medical 02/16/2020 12:00:00 AM EST [place] ([facility]) Outpatient Attender: LUZMARIA DUTTA FP 02/02/2020 12:12:00 PM [facility] Outpatient Attender: Mohit SANZ FP 01/26/2020 01: 20:00 PM [facility] Outpatient Attender: LUZMARIA DUTTA FP 01/26/2020 12:19:00 PM [facility] Outpatient Attender: Mohit SANZ FP 01/25/2020 11: 55:01 AM [facility] Outpatient Attender: Mohit SANZ FP 01/24/2020 12: 16:02 PM [facility] Outpatient Attender: LUZMARIA DUTTA FP 01/24/2020 10:45:02 AM EST [facility] Outpatient Attender: LUZMARIA DUTTA FP 01/21/2020 12:34:01 PM EDT [facility] Outpatient Attender: Mohit SANZ FP 01/21/2020 12: 34:01 PM EDT [facility] Outpatient Attender: LUZMARIA DUTTA FP 01/21/2020 11:53:00 AM EDT [facility] Outpatient Attender: LUZMARIA DUTTA FP 01/21/2020 11:38:00 AM EDT [facility] Outpatient Attender: LUZMARIA DUTTA FP 01/21/2020 11:34:00 AM EDT [facility] Outpatient Attender: LUZMARIA DUTTA FP 01/21/2020 11:33:00 AM EDT [facility] Outpatient Attender: LUZMARIA DUTTA FP 01/21/2020 11:30:00 AM EDT [facility] Outpatient Attender: LUZMARIA DUTTA FP 01/21/2020 11:29:00 AM EDT [facility] Outpatient Attender: LUZMARIA DUTTA FP 01/17/2020 01:25:00 PM EDT [facility] Outpatient Attender: Mohit SANZ FP 06/07/2019 09: 27:00 AM EDT [facility] Medications Medication Brand Name Start Date Product Form Dose Route Admi nistrative Instructions Pharmacy Instructions Status Indications Reaction Description Data Source(s) Ondansetron 8 MG Disintegrating Oral Tab let ondansetron 8 mg disintegrating tablet ondansetron 8 mg disintegrating tablet completed ondansetron 8 MG Disintegrating Oral Tablet [facility] ([facility]) Amoxicillin 875 MG / Clavulanate 125 MG Oral Tablet amoxicillin 875 mg-potassium clavulanate 125 mg tablet amoxicillin 875 mg-potassium clavulanate 125 mg tablet completed amoxicillin 875 MG / clavulanate 125 MG Oral Tablet [facility] ([facility]) Amoxicillin 875 MG / Clavulanate 125 MG Oral Tablet amoxicillin 875 mg-potassium clavulanate 125 mg tablet amoxicillin 875 mg-potassium clavulanate 125 mg tablet completed amoxicillin 875 MG / clavulanate 125 MG Oral Tablet [facility] ([facility]) Acetaminophen 325 MG / Hydrocodone Juanjo trate 5 MG Oral Tablet hydrocodone 5 mg- acetaminophen 325 mg tablet hydrocodone 5 mg-acetaminophen 325 mg tablet completed acetaminophen 325 MG / hydrocodone bitartrate 5 MG Oral Tablet [facility] ([facility]) Ibuprofen 800 MG Oral Tablet ibuprofen 800 mg tablet ibuprofen 8 00 mg tablet completed ibuprofen 800 MG Oral Tablet [facility] ([facility]) Ibuprofen 800 MG Oral Tablet ibuprofen 800 mg tablet ibuprofen 8 00 mg tablet completed ibuprofen 800 MG Oral Tablet [facility] ([facility]) Naproxen 500 MG Oral Tablet naproxen 500 mg tablet naproxen 500 mg ta blet completed naproxen 500 MG Oral Tablet [facility] ([facility]) Naproxen 500 MG Oral Tablet naproxen 500 mg tablet naproxen 500 mg ta blet completed naproxen 500 MG Oral Tablet [facility] ([facility]) Acetaminophen 325 MG / Hydrocodone Juanjo trate 5 MG Oral Tablet hydrocodone 5 mg- acetaminophen 325 mg tablet hydrocodone 5 mg-acetaminophen 325 mg tablet completed acetaminophen 325 MG / hydrocodone bitartrate 5 MG Oral Tablet [facility] ([facility]) Ondansetron 8 MG Disintegrating Oral Tab let ondansetron 8 mg disintegrating tablet ondansetron 8 mg disintegrating tablet completed ondansetron 8 MG Disintegrating Oral Tablet [place] ([facility]) Insurance Providers Payer name Policy type / Coverage type Policy ID Covered libertarian ID Covered libertarian's relationship to singer Policy Singer Plan Information [facility] MCDO [id number] SP [id number] SELF PAY ONLY [id number] SP [id number] Managed Care - [facility] P [id number] S [id number] Medicaid S [id number] S [id number] D Managed Care [facility] O [id number] S [id number] D Managed Care [facility] O [id number] S [id number] [facility] [id number] SP [id number] Medicaid S [id number] S [id number] Managed Care - [facility] P [id number] S [id number] Medicaid O [id number] S [id number] MEDICAID [id number] SP [id number] SELF PAY ONLY [id number] SP [id number] Self Pay P [id number] S [id number] MEDICAID -PHYSICIAN [id number] 1 [id number] MEDICAID - O/P EMERGENCY ROOM [id number] Medicaid Dental P [id number] S [id number] [facility] [id number] SP [id number] [facility] ENID [id number] SP [id number] JOHN [id number] SP [id number] [facility] ENID [id number] SP [id number] [employer] Commercial Self United[employer] Care Hmo Commercial Self [facility] MCDO [id number] SP [id number] SELF PAY UNAVAILABLE SP UNAVAILA BLE Problems, Conditions, and Diagnoses Code Display Name Description Problem Type Effective Dates Data Source(s) 521.03 DENTAL CARIES EXTENDING INTO PULP DENTAL CARIES EXTEND ING INTO PULP 01/21/2020 12:33:40 PM EDT [facility] Results ID Date Data Source [id number] 03/25/2020 12:00:00 AM EST [facility] Name Value Range Interpretation Code Description Data Ivania rce(s) Supporting Document(s) SARS-CoV-2 (COVID-19) RNA [Presence] in Respiratory specimen by KEI with probe detection [facility] This lab was ordered by [facility] and reported by [employer] ID Date Data Source [id number] 01/26/2020 12:22:55 PM EST [facility] Current Problems: DENTAL CARIES EXTENDIN G INTO PULP (ICD-521.03) (ICD10- K02.63)upper respiratory infection (ICD-465.9) (CHC71-L00.9)Diarrhea, unspecified (ICD-787.91) (SDW81-P49.7)Anxiety disorder, unspecified (ICD10- F41.9)Atypical chest pain (ICD-786.59) (NSF15-U20.89)Nicotine dependence, other tobacco product, uncomplicated (VSU84-R15.290)Hematochezia (ICD-578.1) (ICD10- K92.1)Encounter for general adult medical examination with abnormal findings (ICD-V70.0) (USG92-Q91.01)Current Medications: MUCINEX DM 30-600 MG ORAL TABLET EXTENDED RELEASE 12 HOUR (DEXTROMETHORPHAN-GUAIFENESIN) take one tablet twice daily for 4 days; Route: ORALCurrent Allergies: ADHESIVE TAPE (Critical) Dental Chart: Procedures:Type - CDT Code - Description B - (D0330) Panoramic film (Performed by Lisbet Kazt DDS) B - (D7140) Extraction, erupted tooth [...] AM): Assessment & Plan Orders:Oral Surgery Referral [CPT-99494] Name Value Range Interpretation Code Description Data Ivania rce(s) Supporting Document(s) ID Date Data Source [id number] 01/25/2020 11:00:24 AM [facility] Current Problems: DENTAL CARIES EXTENDIN G INTO PULP (ICD-521.03) (ICD10- K02.63)upper respiratory infection (ICD-465.9) (ULH86-U73.9)Diarrhea, unspecified (ICD-787.91) (QHO19-E22.7)Anxiety disorder, unspecified (ICD10- F41.9)Atypical chest pain (ICD-786.59) (CFY52-H61.89)Nicotine dependence, other tobacco product, uncomplicated (CGR71-V45.290)Hematochezia (ICD-578.1) (ICD10- K92.1)Encounter for general adult medical examination with abnormal findings (ICD-V70.0) (JYE56-T95.01)Current Medications: MUCINEX DM 30-600 MG ORAL TABLET [...] DMD) Chart Notes:jlam (Jan 25 2020 11:54AM): [facility] (-)per pt. Took temp@ [employer]. Additional PPE requirements due to COVID-19 in [...] rce(s) Supporting Document(s) ID Date Data Source [id number] 01/24/2020 08:56:40 AM [facility] Vital SignsBlood Pressure: 140/85 Patient History Medical History:AnxietyDepressionADHDClot in right leg - patient seen in ER in nov 2019Family History:Hyperthyroidism (Mother)Social/Personal History: Smoking Status: current every day smokerCurrent Problems: DENTAL CARIES EXTENDING INTO PULP (ICD-521.03) (VDK35-R90.63)upper respiratory infection (ICD-465.9) (ICD10- J06.9)Diarrhea, unspecified (ICD-787.91) (BPF67-Z10.7)Anxiety disorder, unspecified (OJS36-A13.9)Atypical chest pain (ICD-786.59) (BNC92-W47.89)Nicotine dependence, other tobacco product, uncomplicated (UER71-D30.290)Hematochezia (ICD-578.1) (VVH92-W83.1)Encounter for general adult medical examination with abnormal findings (ICD-V70.0) (QEJ77-J42.01)Current Medications: MUCINEX DM 30- 600 MG ORAL [...] #8 Surface DL, #9 Surface DL[E] [employer] #13 Surface DO, #14 Surface LMOD, #15 Surface BMOD, #18 Surface O, #19 Surface MOD, #2 Surface MOB, #20 Surface DO, #29 Surface DO, #3 Surface DOM, #30 Surface DOMB, #31 Surface MOB, #4 Surface OD, #5 Surface DO[E] Missing - [place] and [place] On #1 Surface O Region [...] surgical mask, hair covering, gown and shield [facility](-). CC: none. Reviewed Xrays. Exam: caries [...] rce(s) Supporting Document(s) ID Date Data Source [id number] 01/21/2020 11:28:46 AM EDT [facility] Current Problems: DENTAL CARIES EXTENDIN G INTO PULP (ICD-521.03) (ICD10- K02.63)upper respiratory infection (ICD-465.9) (QQH36-Q58.9)Diarrhea, unspecified (ICD-787.91) (HBI44-Q14.7)Anxiety disorder, unspecified (ICD10- F41.9)Atypical chest pain (ICD-786.59) (VOG04-F40.89)Nicotine dependence, other tobacco product, uncomplicated (LZJ27-R23.290)Hematochezia (ICD-578.1) (ICD10- K92.1)Encounter for general adult medical examination with abnormal findings (ICD-V70.0) (MTC37-C93.01)Problem list reviewed during this update.Current Medications: MUCINEX [...] RELEASE 12 HOURAllergies:ADHESIVE TAPE (Critical)Orders:Oral Surgery Referral [CPT-94201] Name Value Range Interpretation Code Description Data Ivania rce(s) Supporting Document(s) Procedure Vital Signs ID Date Data Source UNK Name Value Range Interpretation Code Description Data Source(s) Body weight 2889.6 [oz_av] 2889.6 [oz_av] ATHEN A ([facility]) Systolic blood pressure 149 mm[Hg] 149 mm[Hg] A [facility] ([facility]) Systolic blood pressure 138 mm[Hg] 138 mm[Hg] A [facility] ([facility]) Body mass index (BMI) [Ratio] 24.8 kg/m2 24.8 k g/m2 [facility] ([facility]) Body height 71.5 [in_i] 71.5 [in_i] [facility] ([facility]) Diastolic blood pressure 96 mm[Hg] 96 mm[Hg] [facility] ([facility]) Diastolic blood pressure 94 mm[Hg] 94 mm[Hg] [facility] ([facility]) Body weight 2889.6 [oz_av] 2889.6 [oz_av] ATHEN A ([facility]) Systolic blood pressure 149 mm[Hg] 149 mm[Hg] A THENA ([facility]) Systolic blood pressure 138 mm[Hg] 138 mm[Hg] A THENA ([facility]) Body mass index (BMI) [Ratio] 24.8 kg/m2 24.8 k g/m2 [facility] ([facility]) Body height 71.5 [in_i] 71.5 [in_i] [facility] ([facility]) Diastolic blood pressure 96 mm[Hg] 96 mm[Hg] [facility] ([facility]) Diastolic blood pressure 94 mm[Hg] 94 mm[Hg] [facility] ([facility]) Patient Treatment Plan of Care Planned Activity Planned Date Details Description Data Source (s) Ondansetron 8 MG Disintegrating Oral Tablet [facility] ([facility]) Naproxen 500 MG Oral Tablet [facility] ([facility]) Ibuprofen 800 MG Oral Tablet [facility] ([facility]) Acetaminophen 325 MG / Hydrocodone Bitartrate 5 MG Oral Tablet [facility] ([facility]) Amoxicillin 875 MG / Clavulanate 125 MG Oral Tablet [facility] ([facility]) Ondansetron 8 MG Disintegrating Oral Tablet [facility] ([facility]) Naproxen 500 MG Oral Tablet [facility] ([facility]) [facility] Acetaminophen 325 MG / Hydrocodone Bitartrate 5 [facility] Amoxicillin 875 MG / Clavulanate 125 MG Oral Tablet [facility] ([facility])
[2020-05-15] MEDS ORDERED: ACETAMINOPHEN 500 MG TAB PO ONE (15:30)
[2020-05-15 15:47] LABS: BASO # 0.1 10^3/uL (0.0-0.2); BASO % 0.9 % (0.0-1.0); EOS # 0.3 10^3/uL (0.0-0.5); EOS % 3.9 % (0.0-3.0); HEMATOCRIT 45.7 % (42.0-52.0); HEMOGLOBIN 15.8 g/dl (13.5-17.5); LYMPH % 28.1 % (24.0-44.0); MEAN CORPUSCULAR HEMOGLOBIN 33.3 pg (27.0-33.0); MEAN CORPUSCULAR HGB CONC 34.6 g/dl (32.0-36.5); MEAN CORPUSCULAR VOLUME 96.4 fl (80.0-96.0); MONO # 0.5 10^3/uL (0.0-0.8); MONO % 7.7 % (2.0-8.0); NEUTROPHILS # 4.1 10^3/uL (1.5-8.5); NEUTROPHILS % 59.1 % (36.0-66.0); PLATELET COUNT, AUTOMATED 231 10^3/uL (150-450); RED BLOOD COUNT 4.74 10^6/uL (4.30-6.10)
[2020-05-15 15:58] LABS: INR 0.91; PROTHROMBIN TIME 12.4 SECONDS (12.5-14.3)
[2020-05-15 15:59] LABS: PARTIAL THROMBOPLASTIN TIME 25.2 SECONDS (24.2-38.5)
--- NOTE | 2020-05-15 16:02 | REP ---
INDICATION: R medial thigh redness/swelling, h/o superficial clot COMPARISON: 05/08/2020. TECHNIQUE: Real time compression and duplex Doppler interrogation of the right lower extremity deep venous system is performed. FINDINGS: The right common femoral, superficial femoral and popliteal veins are fully compressible with transducer pressure and demonstrate normal spontaneous and phasic flow, without evidence of deep venous thrombosis. There is diffuse thrombus in the greater saphenous vein, the proximal aspect is approximately 3.7 cm from the saphenofemoral junction. IMPRESSION: No evidence of deep venous thrombosis of the right lower extremity femoral popliteal venous system. There is diffuse thrombus in the greater saphenous vein, the proximal aspect is approximately 3.7 cm from the saphenofemoral junction. <Electronically signed by Slade Kowalski > 05/15/20 [id number]
[2020-05-15 16:10] LABS: BLOOD UREA NITROGEN 8 MG/DL (7-18); C REACTIVE PROTEIN QUANTITATIV 0.32 MG/DL (0.00-0.30); CALCIUM LEVEL 9.2 MG/DL (8.5-10.1); CARBON DIOXIDE LEVEL 26 MEQ/L (21-32); CHLORIDE LEVEL 105 MEQ/L (98-107); CREATININE FOR GFR 0.97 MG/DL (0.70-1.30); GLOMERULAR FILTRATION RATE > 60.0 (>60); GLUCOSE, FASTING 92 MG/DL (70-100); POTASSIUM SERUM 4.1 MEQ/L (3.5-5.1); SODIUM LEVEL 139 MEQ/L (136-145)
[2020-05-15 16:26] LABS: ERYTHROCYTE SEDIMENTATION RATE 2 mm/hr (0-15)
[2020-05-15] MEDS ORDERED: XARE15TA PO (17:21)
[2020-05-15 17:53] VITALS: BP 142/90
[2020-05-15] MEDS ORDERED: RIVAROXABAN 15 MG TAB (XARELTO) PO ONE (18:00)
[2020-05-17 12:01] LABS: DRVV SCREEN 47.5 SEC
[2020-05-17 12:03] LABS: PTT LUPUS TYPE ANTICOAG SCREEN 1.2 (0-1.2)
[2020-05-17 12:09] LABS: LUPUS CONFIRM RATIO 0.9
[2020-05-17 12:10] LABS: NORMALIZED RATIO 1.33 (0.00-1.20)
== END 2020-05-15 18:05 | disposition home or self-care (01) ==
LOC: M ED 12:22
DX: I80.201 Phlebitis and thrombophlebitis of unspecified deep vessels of right lower extremity (principal); F90.9 Attention-deficit hyperactivity disorder, unspecified type; F41.0 Panic disorder [episodic paroxysmal anxiety]; Z86.711 Personal history of pulmonary embolism; F17.200 Nicotine dependence, unspecified, uncomplicated; F12.10 Cannabis abuse, uncomplicated; Z79.01 Long term (current) use of anticoagulants

== ENCOUNTER → 2020-07-24 | Outpatient (REF) | payer OTHER ==
[~2020-07-24] MED LIST changes: +XARE15TA PO
[2020-07-24 16:35] LABS: ALBUMIN 3.8 GM/DL (3.2-5.2); ALT/SGPT 138 U/L (12-78); BILIRUBIN,TOTAL 0.8 MG/DL (0.2-1.0); BLOOD UREA NITROGEN 13 MG/DL (7-18); CALCIUM LEVEL 9.5 MG/DL (8.5-10.1); CARBON DIOXIDE LEVEL 27 MEQ/L (21-32); CHLORIDE LEVEL 104 MEQ/L (98-107); CHOLESTEROL LEVEL 292 MG/DL (<200); CHOLESTEROL RISK RATIO 5.034 (<5); CREATININE FOR GFR 1.06 MG/DL (0.70-1.30); GLOMERULAR FILTRATION RATE > 60.0 (>60); GLUCOSE, FASTING 100 MG/DL (70-100); HDL CHOLESTEROL 58 MG/DL (>40); LDL CHOLESTEROL 175 MG/DL (<100); NON-HDL-C 234 MG/DL; POTASSIUM SERUM 4.2 MEQ/L (3.5-5.1); SODIUM LEVEL 138 MEQ/L (136-145); TRIGLYCERIDES LEVEL 294 MG/DL (<150)
== END ==
LOC: M LAB REF 11:29
PROVIDERS: ATTEND Family Medicine Addiction Medicine
DX: I10 Essential (primary) hypertension (principal)

== ENCOUNTER → 2020-08-28 | Outpatient (REF) | payer OTHER ==
[2020-08-28 19:31] LABS: ALBUMIN 4.1 GM/DL (3.2-5.2); ALT/SGPT 161 U/L (12-78); BILIRUBIN,DIRECT 0.3 MG/DL (0.0-0.2); TOTAL PROTEIN 7.2 GM/DL (6.4-8.2)
[2020-08-28 19:35] LABS: HEPATITIS B SURFACE ANTIGEN NEGATIVE (NEGATIVE)
[2020-08-28 20:03] LABS: HEPATITIS B CORE ANTIBODY IGM NEGATIVE (NEGATIVE); HEPATITIS C VIRUS ABY INDEX < 0.0 INDEX (<0.8)
[2020-08-28 20:05] LABS: HEPATITIS A ANTIBODY IGM NEGATIVE (NEGATIVE)
== END ==
LOC: M LAB REF 16:21
PROVIDERS: ATTEND Family Medicine Addiction Medicine
DX: R94.5 Abnormal results of liver function studies (principal)

== ENCOUNTER → 2020-09-12 | Outpatient (CLI) | payer OTHER ==
--- NOTE | 2020-09-12 09:41 | REP ---
INDICATION: ABNORMAL RESULTS OF LFT. COMPARISON: None. TECHNIQUE: Real-time sonographic evaluation of right upper quadrant performed. FINDINGS: The gallbladder demonstrates no evidence of intraluminal sludge or calculi, wall thickening or pericholecystic fluid. There is no intrahepatic or extrahepatic biliary dilatation, common bile duct measures 4 mm in maximum diameter. There is mild hepatomegaly, the length of the liver is 18.8 cm. There is diffuse heterogeneous increased echotexture of the liver compatible with diffuse fibrofatty infiltration. No gross mass is seen. The pancreas demonstrates homogeneous echotexture with no gross mass. The right kidney demonstrates no hydronephrosis, with a normal size of 12.1 cm in length. No free fluid is seen. IMPRESSION: Mild hepatomegaly with diffuse fibrofatty infiltration of the liver. No gross liver mass. <Electronically signed by Slade Kowalski > 09/12/20 0937
== END ==
LOC: M RAD 09:01
PROVIDERS: ATTEND Family Medicine Addiction Medicine
DX: R94.5 Abnormal results of liver function studies (principal)

== ENCOUNTER 2020-11-11 03:49 | Emergency (ER) | payer OTHER ==
[~2020-11-11] VITALS: Ht 182.9 cm; Wt 80.8 kg
[2020-11-11 03:51] VITALS: BP 144/99
[2020-11-11] MEDS ORDERED: AMLO1TAB25 PO (04:11)
[2020-11-11] MEDS ORDERED: ELIQ5TAB PO (04:11)
== END 2020-11-11 06:05 | disposition left against medical advice (07) ==
LOC: M ED 03:49
DX: Z53.29 Procedure and treatment not carried out because of patient's decision for other reasons (principal)

== ENCOUNTER → 2021-12-13 | Outpatient (CLI) | payer OTHER ==
[~2021-12-13] MED LIST changes: +AMLO1TAB25 PO; +ELIQ5TAB PO
== END ==
LOC: M SOG 08:46
PROVIDERS: ATTEND Orthopaedic Surgery
DX: M25.511 Pain in right shoulder (principal)